=== PATIENT | male | born 1965 | race Caucasian/White ===

== ENCOUNTER 2021-09-16 19:51 | Inpatient (IN) ==
[2021-09-16] MEDS ORDERED: ACETAMINOPHEN 500 MG TAB PO STA (20:03)
[2021-09-16] MEDS ORDERED: dexAMETHasone**PF** 10 MG/ML VIAL IV ONE (20:14)
[2021-09-16] MEDS ORDERED: cefTRIAXone SODIUM 2,000 MG/70 ML BAG IV STA (20:14)
--- NOTE | 2021-09-16 20:20 | Emergency Department Note ---
Impression & Plan Pneumonia, Altered mental status, Acute hyponatremia, Fever ED Provider Note NAME: BALBIR HOPE AGE: 56 SEX: M : 1965 ARRIVES VIA: Walk-In INFORMANT: Patient, patient's son ED PROVIDER(S): Cheikh Cabrera DO CHIEF COMPLAINT: Altered mental status HPI: The patient is a 56-year-old male who presented to the emergency department for an evaluation of altered mental status. The patient presented with his son. The patient is able to give some history but he seems somewhat confused and slow to answer questions. The patient has had symptoms for approximately 1 week. He has had no abdominal pain or vomiting but he has had some nausea and loose bowel movements. He has had a headache as well. According to his son he has been complaining of the symptoms off and on for the last week. 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 There is concern that the patient may have been exposed to dirty water. He was not drinking this water. There is also concern he may have a tickborne or mosquito borne illness. The patient has been taking medication for fever. The patient has had no traveling outside of the area. The patient was ordered an antibiotic today which he was unable to get initially but did have at least 1 dose according to his son. He is had no reported trauma. He has had no reported rashes. He denies having any back pain but complains of overall muscle pain. ROS: See above HPI for pertinent positives & negatives. A total of 10 systems reviewed and were otherwise negative. PAST MEDICAL HISTORY: See Below PAST SURGICAL HISTORY: See Below FAMILY HISTORY: See Below SOCIAL HISTORY: See Below HOME MEDICATIONS: See Below ALLERGIES: See Below VITALS: See Below PHYSICAL EXAMINATION: GENERAL: The patient is awake. He appears somewhat listless but answers questions appropriately. EYES: The conjunctivae are clear. The pupils are round and reactive. EARS, NOSE, MOUTH AND THROAT: The nose is without any evidence of any deformity. Mucous membranes are moist. Tongue is midline. NECK: The neck is nontender and supple. RESPIRATORY: Normal respiratory effort is noted there is no evidence of wheezing rhonchi or rales CARDIOVASCULAR: Regular rate and rhythm noted there no murmurs rubs or gallops normal S1 normal S2. GASTROINTESTINAL: The abdomen is soft. Abdomen is nontender. MUSCULOSKELETAL/EXTREMITIES: There is no evidence of gross deformity full range of motion is noted in the hips and shoulders. SKIN: Skin is warm and dry. There is no significant pedal edema. NEUROLOGIC: Patient is awake to verbal commands. Strength was symmetric. Voice is clear. MEDICAL DECISION MAKING: Patient is a 56-year-old male who presented to the emergency department for an evaluation of altered mental status. He has had what was thought to be a viral illness through the course of the week. His family member brought him to the emergency department this evening because of worsening symptoms. The patient was found to have an elevated temperature. He was also found to have hypertension. I discussed patient's laboratory and radiographic studies with him. Given his presentation he initially was treated with medications for presumed meningitis including Decadron Rocephin and vancomycin. He was also found to have hyponatremia as well as signs of pulmonary infiltrate. For this reason he was given Zithromax and a Legionella titer was ordered. Patient was also treated with IV fluids. I discussed this case with the on-call [facility] hospitalist. They have agreed to evaluate the patient in the emergency department for further management and disposition. Triage Nursing notes reviewed. Prior medical records reviewed Vital Signs: reviewed and remarkable for elevated blood pressure, fever and tachycardia. Differential diagnosis: Migraine headache, meningitis, sinusitis, CO exposure, ICH, SAH, infection, tumor, headache, sinus thrombosis, arterial dissection, as well as other pathologies. ER treatment provided: See below Diagnostics interpreted by me: ECG: EKG was obtained in the emergency department. My interpretation is normal sinus rhythm at 96 bpm. There is no ectopy. There is no acute ST segment abnormalities noted. This was compared to a tracing from July 15, 2011. No changes were noted. Cardiac Monitoring: An order was placed for continuous cardiac monitoring. The monitor shows a rate of 99 bpm with sinus rhythm. Laboratory studies: As stated above and show below. Imaging studies: See below Consultation(s): Discussed this case with Dr. Lux ED COURSE: Procedures: Lumbar Puncture Indication: Headache and fever. Verbal consent was obtained after the risks and benefits were explained, including but not limited to headache, bleeding/clotting, scarring, infection, pain, and bone/joint/nerve damage. At this time, the risks of the procedure are less than the risks of NOT performing the procedure. A time out was taken and the correct patient and site identified. The patient was placed in the seated position and the back was prepped with betadine and draped in the standard fashion. The L3 intervertebral space was identified, anesthetized locally with 1% lidocaine without epinephrine, and the spinal needle was inserted through the skin with the bevel parallel to the dural fibers. The needle was carefully ad vanced into the lumbar cistern and 4 tubes of clear CSF was obtained. The stylet was replaced and the needle was removed. A bandaid was placed and the patient was placed in the supine position. The patient tolerated the procedure well and there were no complications. Critical Care: I have personally spent greater than 40 minutes of critical care time in the direct management of this patient. This includes bedside care, interpretation of diagnostic studies, and testing, discussion with consultants, patient, and family members, and other required patient management activities. This 40 minutes is in excess of all separately billable procedures. Past Med/Surg History Social History Smoking Status: Never smoker Preferred Language: Faroese Feels Safe at Home: Yes Allergies Allergies Allergy/AdvReac Type Severity Reaction Status Date / Time No Known Allergies Allergy Verified 09/16/21 22:27 [id number] Allergy Unknown Unknown Uncoded 09/16/21 22:27 Home Meds Home Medications Medication Instructions Recorded Confirmed albuterol sulfate 90 mcg/actuation 2 puff inhalation Q4 PRN Shortness 09/16/21 09/16/21 aerosol inhaler Of Breath Or Wheezing allopurinol 100 mg tablet 100 mg PO DAILY 09/16/21 09/16/21 amoxicillin 500 mg capsule 500 mg PO TID 09/16/21 09/16/21 losartan 50 mg tablet 50 mg PO QAM 09/16/21 09/16/21 metformin 500 mg tablet 500 mg PO QAM 09/16/21 09/16/21 prednisone 20 mg tablet 40 mg PO DAILY 09/16/21 09/16/21 Results & Data (ED) Vital Signs Vital Signs - 24 hr 09/16/21 19:56 Temperature 40 C H Temperature Source Temporal Artery Scan Pulse Rate 99 H Respiratory Rate 20 Respiratory Effort / Characteristics Non-Labored Spontaneous Blood Pressure 176/99 H Blood Pressure Mean 124 Pulse Oximetry 96 Oxygen Delivery Method Room Air Sepsis Recent Fever Within 48 Hours Yes Sepsis New/Unexplained Change in Mental Status No Sepsis Action Taken by Nursing No Action Required Home Medications Current Medication List: was personally reviewed by me Laboratory Data Attestation: I reviewed the patient's lab results. Result diagrams: 09/16/21 20:10 09/16/21 20:10 Lab Results 09/16/21 09/16/21 09/16/21 Range/Units 20:10 20:10 20:10 WBC 8.29 (4.8-10.8) K/ul RBC 4.59 L (4.63-6.08) M/uL Hgb 13.3 L (14.0-18.0) g/dl Hct 37.3 L (40.1-51.0) % MCV 81.3 (80.0-100.0) fL MCH 29.0 (25.0-34.0) pg MCHC 35.7 (32.0-36.0) g/dL RDW Std Deviation 38.1 (36.4-46.3) fL RDW Coeff of Deanne 12.9 (11.5-14.5) % Plt Count 273 (130-400) K/uL MPV 9.7 (9.4-12.4) fL Immature Gran % (Auto) 0.8 % Neut % (Auto) 85.2 % Lymph % (Auto) 5.5 % Mcmullen % (Auto) 7.6 % Eos % (Auto) 0.4 % Baso % (Auto) 0.5 % Neut # (Auto) 7.06 H (1.4-6.5) K/uL Lymph # (Auto) 0.46 L (1.2-3.4) K/uL Mcmullen # (Auto) 0.63 (0.24-0.82) K/uL Eos # (Auto) 0.03 (0-0.50) K/uL Baso # (Auto) 0.04 (0-0.2) K/uL Immature Gran # (Auto) 0.07 H (0.00-0.02) K/uL ESR 107 H (0-20) mm/hr PT 11.5 (9.0-12.0) Seconds INR 1.1 (0.9-1.1) APTT 32.8 H (21.0-31.0) Seconds PTT Ratio 1.2 Sodium (136-145) mmol/L Potassium (3.5-5.1) mmol/L Chloride (98-107) mmol/L Carbon Dioxide (21-32) mmol/L Anion Gap (3-11) BUN (6-23) mg/dl Creatinine (0.6-1.4) mg/dl Est Cr Clr Drug Dosing ml/min Est GFR ( Amer) ml/min Est GFR (Non-Af Amer) ml/min BUN/Creatinine Ratio (10-20) Glucose (70-99(Fasting)) mg/dl Osmolality (280-300) mOsm/kg Lactate (0.4-2.0) mmol/L Calcium (8.5-10.1) mg/dl Magnesium (1.7-2.4) mg/dl Total Bilirubin (0.2-1.0) mg/dl AST (13-39) U/L ALT (7-52) U/L Alkaline Phosphatase (34-104) U/L Troponin I High Sens (0-20) pg/ml C-Reactive Protein (0-0.5) mg/dl Total Protein (6.0-8.3) gm/dl Albumin (3.4-5.0) gm/dl Globulin (2.5-4.0) gm/dl Albumin/Globulin Ratio (0.9-2) Procalcitonin (0-0.5) ng/ml Fluid Comment CSF Appearance CSF Color Xanthrochromic CSF WBC (0-5) /uL CSF RBC (0-) /uL CSF Cell Count Tube # CSF Chemistry Tube # CSF Glucose (40-70) mg/dl CSF Total Protein (15-45) mg/dl Anaplasma Smear See Comment Babesia Smear See Comment Lyme Disease IgG Ab (Negative) Lyme Disease IgM Ab (Negative) SARS-CoV-2 (PCR) (Negative) Influenza Type A (PCR) (Neg) Influenza Type B (PCR) (Neg) RSV (RT-PCR) (Neg) 09/16/21 09/16/21 09/16/21 Range/Units 20:10 20:10 20:10 WBC (4.8-10.8) K/ul RBC (4.63-6.08) M/uL Hgb (14.0-18.0) g/dl Hct (40.1-51.0) % MCV (80.0-100.0) fL MCH (25.0-34.0) pg MCHC (32.0-36.0) g/dL RDW Std Deviation (36.4-46.3) fL RDW Coeff of Deanne (11.5-14.5) % Plt Count (130-400) K/uL MPV (9.4-12.4) fL Immature Gran % (Auto) % Neut % (Auto) % Lymph % (Auto) % Mcmullen % (Auto) % Eos % (Auto) % Baso % (Auto) % Neut # (Auto) (1.4-6.5) K/uL Lymph # (Auto) (1.2-3.4) K/uL Mcmullen # (Auto) (0.24-0.82) K/uL Eos # (Auto) (0-0.50) K/uL Baso # (Auto) (0-0.2) K/uL Immature Gran # (Auto) (0.00-0.02) K/uL ESR (0-20) mm/hr PT (9.0-12.0) Seconds INR (0.9-1.1) APTT (21.0-31.0) Seconds PTT Ratio Sodium 112 L* (136-145) mmol/L Potassium 4.2 (3.5-5.1) mmol/L Chloride 80 L (98-107) mmol/L Carbon Dioxide 22 (21-32) mmol/L Anion Gap 10 (3-11) BUN 13 (6-23) mg/dl Creatinine 1.06 (0.6-1.4) mg/dl Est Cr Clr Drug Dosing 117.0 ml/min Est GFR ( Amer) 91.8 ml/min Est GFR (Non-Af Amer) 79.2 ml/min BUN/Creatinine Ratio 12.3 (10-20) Glucose 96 (70-99(Fasting)) mg/dl Osmolality (280-300) mOsm/kg Lactate 1.3 (0.4-2.0) mmol/L Calcium 9.0 (8.5-10.1) mg/dl Magnesium 1.8 (1.7-2.4) mg/dl Total Bilirubin 1.7 H (0.2-1.0) mg/dl AST 63 H (13-39) U/L ALT 155 H (7-52) U/L Alkaline Phosphatase 81 (34-104) U/L Troponin I High Sens 19.0 (0-20) pg/ml C-Reactive Protein 27.49 H (0-0.5) mg/dl Total Protein 7.6 (6.0-8.3) gm/dl Albumin 3.8 (3.4-5.0) gm/dl Globulin 3.8 (2.5-4.0) gm/dl Albumin/Globulin Ratio 1.0 (0.9-2) Procalcitonin 0.75 H (0-0.5) ng/ml Fluid Comment CSF Appearance CSF Color Xanthrochromic CSF WBC (0-5) /uL CSF RBC (0-) /uL CSF Cell Count Tube # CSF Chemistry Tube # CSF Glucose (40-70) mg/dl CSF Total Protein (15-45) mg/dl Anaplasma Smear Babesia Smear Lyme Disease IgG Ab Negative (Negative) Lyme Disease IgM Ab Negative (Negative) SARS-CoV-2 (PCR) (Negative) Influenza Type A (PCR) (Neg) Influenza Type B (PCR) (Neg) RSV (RT-PCR) (Neg) 09/16/21 09/16/21 09/16/21 Range/Units 20:10 20:30 21:55 WBC (4.8-10.8) K/ul RBC (4.63-6.08) M/uL Hgb (14.0-18.0) g/dl Hct (40.1-51.0) % MCV (80.0-100.0) fL MCH (25.0-34.0) pg MCHC (32.0-36.0) g/dL RDW Std Deviation (36.4-46.3) fL RDW Coeff of Deanne (11.5-14.5) % Plt Count (130-400) K/uL MPV (9.4-12.4) fL Immature Gran % (Auto) % Neut % (Auto) % Lymph % (Auto) % Mcmullen % (Auto) % Eos % (Auto) % Baso % (Auto) % Neut # (Auto) (1.4-6.5) K/uL Lymph # (Auto) (1.2-3.4) K/uL Mcmullen # (Auto) (0.24-0.82) K/uL Eos # (Auto) (0-0.50) K/uL Baso # (Auto) (0-0.2) K/uL Immature Gran # (Auto) (0.00-0.02) K/uL ESR (0-20) mm/hr PT (9.0-12.0) Seconds INR (0.9-1.1) APTT (21.0-31.0) Seconds PTT Ratio Sodium (136-145) mmol/L Potassium (3.5-5.1) mmol/L Chloride (98-107) mmol/L Carbon Dioxide (21-32) mmol/L Anion Gap (3-11) BUN (6-23) mg/dl Creatinine (0.6-1.4) mg/dl Est Cr Clr Drug Dosing ml/min Est GFR ( Amer) ml/min Est GFR (Non-Af Amer) ml/min BUN/Creatinine Ratio (10-20) Glucose (70-99(Fasting)) mg/dl Osmolality 236 L* (280-300) mOsm/kg Lactate (0.4-2.0) mmol/L Calcium (8.5-10.1) mg/dl Magnesium (1.7-2.4) mg/dl Total Bilirubin (0.2-1.0) mg/dl AST (13-39) U/L ALT (7-52) U/L Alkaline Phosphatase (34-104) U/L Troponin I High Sens (0-20) pg/ml C-Reactive Protein (0-0.5) mg/dl Total Protein (6.0-8.3) gm/dl Albumin (3.4-5.0) gm/dl Globulin (2.5-4.0) gm/dl Albumin/Globulin Ratio (0.9-2) Procalcitonin (0-0.5) ng/ml Fluid Comment CSF Appearance Clear CSF Color Colorless Xanthrochromic No xanthochromia CSF WBC 2 (0-5) /uL CSF RBC 2 (0-) /uL CSF Cell Count Tube # 3 CSF Chemistry Tube # CSF Glucose (40-70) mg/dl CSF Total Protein (15-45) mg/dl Anaplasma Smear Babesia Smear Lyme Disease IgG Ab (Negative) Lyme Disease IgM Ab (Negative) SARS-CoV-2 (PCR) NEGATIVE (Negative) Influenza Type A (PCR) Negative (Neg) Influenza Type B (PCR) Negative (Neg) RSV (RT-PCR) Negative (Neg) 09/16/21 09/16/21 Range/Units 21:55 21:55 WBC (4.8-10.8) K/ul RBC (4.63-6.08) M/uL Hgb (14.0-18.0) g/dl Hct (40.1-51.0) % MCV (80.0-100.0) fL MCH (25.0-34.0) pg MCHC (32.0-36.0) g/dL RDW Std Deviation (36.4-46.3) fL RDW Coeff of Deanne (11.5-14.5) % Plt Count (130-400) K/uL MPV (9.4-12.4) fL Immature Gran % (Auto) % Neut % (Auto) % Lymph % (Auto) % Mcmullen % (Auto) % Eos % (Auto) % Baso % (Auto) % Neut # (Auto) (1.4-6.5) K/uL Lymph # (Auto) (1.2-3.4) K/uL Mcmullen # (Auto) (0.24-0.82) K/uL Eos # (Auto) (0-0.50) K/uL Baso # (Auto) (0-0.2) K/uL Immature Gran # (Auto) (0.00-0.02) K/uL ESR (0-20) mm/hr PT (9.0-12.0) Seconds INR (0.9-1.1) APTT (21.0-31.0) Seconds PTT Ratio Sodium (136-145) mmol/L Potassium (3.5-5.1) mmol/L Chloride (98-107) mmol/L Carbon Dioxide (21-32) mmol/L Anion Gap (3-11) BUN (6-23) mg/dl Creatinine (0.6-1.4) mg/dl Est Cr Clr Drug Dosing ml/min Est GFR ( Amer) ml/min Est GFR (Non-Af Amer) ml/min BUN/Creatinine Ratio (10-20) Glucose (70-99(Fasting)) mg/dl Osmolality (280-300) mOsm/kg Lactate (0.4-2.0) mmol/L Calcium (8.5-10.1) mg/dl Magnesium (1.7-2.4) mg/dl Total Bilirubin (0.2-1.0) mg/dl AST (13-39) U/L ALT (7-52) U/L Alkaline Phosphatase (34-104) U/L Troponin I High Sens (0-20) pg/ml C-Reactive Protein (0-0.5) mg/dl Total Protein (6.0-8.3) gm/dl Albumin (3.4-5.0) gm/dl Globulin (2.5-4.0) gm/dl Albumin/Globulin Ratio (0.9-2) Procalcitonin (0-0.5) ng/ml Fluid Comment CSF Appearance CSF Color Xanthrochromic CSF WBC (0-5) /uL CSF RBC (0-) /uL CSF Cell Count Tube # CSF Chemistry Tube # 1 CSF Glucose 54 (40-70) mg/dl CSF Total Protein 27.6 (15-45) mg/dl Anaplasma Smear Babesia Smear Lyme Disease IgG Ab (Negative) Lyme Disease IgM Ab (Negative) SARS-CoV-2 (PCR) (Negative) Influenza Type A (PCR) (Neg) Influenza Type B (PCR) (Neg) RSV (RT-PCR) (Neg) Administered Medications Azithromycin 500 mg/ Dextrose 255 mls @ 127.5 mls/hr IV NOW STA Stop: 09/16/21 23:28 Last Admin: 09/16/21 23:07 Dose: 127.5 mls/hr Documented By: LAVERNE Vancomycin HCl 2,750 mg/ (Sodium Chloride) 555 mls @ 200 mls/hr IV NOW ONE Stop: 09/17/21 00:15 Last Admin: 09/16/21 22:12 Dose: 200 mls/hr Documented By: LAVERNE Discontinued Medications Acetaminophen (Acetaminophen 500 Mg Tab) 1,000 mg PO NOW STA Stop: 09/16/21 20:04 Last Admin: 09/16/21 20:22 Dose: 1,000 mg Documented By: [id number] Dexamethasone Sodium Phosphate (DexamethasonePf 10 Mg/Ml Vial) 10 mg IV NOW ONE Stop: 09/16/21 20:15 Last Admin: 09/16/21 20:40 Dose: 10 mg Documented By: LAVERNE Ceftriaxone Sodium (Rocephin) 2,000 mg in 70 mls @ 140 mls/hr IV NOW STA Stop: 09/16/21 20:43 Last Admin: 09/16/21 20:40 Dose: 140 mls/hr Documented By: LAVERNE Lidocaine/Epinephrine (Lido/Epinephrine/Sod Bicarb 20 Ml Vial) Confirm Administered Dose 20 ml INFIL .STK-MED ONE Stop: 09/16/21 21:47 Last Admin: 09/16/21 21:50 Dose: 20 ml Documented By: LAVERNE Imaging Data Radiologist's Impression: Chest X-Ray 09/16/21 20:03 XR chest 1V portable HISTORY: 56 years-old Male SEPSIS acute sepsis COMPARISON: Chest radiograph 07/15/2011 TECHNIQUE: Portable AP view of the chest FINDINGS: Cardiac silhouette is enlarged. Poorly vascular congestion. Bibasilar and right perihilar airspace opacities measure up to 3.7 cm within the right perihilar distribution. Trace pleural effusions. No pneumothorax. Degenerative changes of the shoulders and spine. IMPRESSION: 1. Cardiomegaly with pulmonary vascular congestion. 2. Right perihilar and bibasilar opacities are noted. Findings may represent a superimposed infectious or inflammatory pneumonitis versus asymmetric pulmonary edema with atelectasis. Follow-up imaging to document resolution recommended. 3. Trace pleural effusions. ACT 112: Negative or not required by law. The above report was generated using voice recognition software. It may contain grammatical, syntax or spelling errors. Electronically signed by: Irineo Banda M.D. 09/16/2021 8:45 PM Patient: BALBIR HOPE (Male) : 69 Status: ER Date: 09/16/21 21:36 Room #: History: FEVER Slices: 811 Priors: Tech: AntonioBhupendra @ [phone] Exams: CT ABDOMEN & PELVIS Without Contrast Contrast: Accession Numbers: [id number] Referring Physician: EMA ARMENDARIZ Preliminary Findings Only See Final Report For Complete Findings CT ABDOMEN & PELVIS Without Contrast: Partially seen moderate to large left lower lobe consolidation. Small consolidation at the right lung base. The heart is large. Liver large measuring 28 cm. Gallbladder, pancreas, spleen and adrenals are intact. Kidneys are intact. Bladder intact. Fluid in the large and small bowel loops. Fluid in the rectum. No bowel obstruction. Appendix not seen. No adenopathy, free fluid or free air. Minimal atherosclerosis. No acute findings in the bones. Impression: Bowel pattern with features of a gastroenteritis. Radiologist: Gordon Garcia M.D. Study ready at 21:42 and initial results transmitted at 22:12 Patient: BALBIR HOPE (Male) : 69 B Status: ER Date: 09/16/21 21:36 Room #: History: FEVER Slices: 811 Priors: Tech: Antonio Bhupendra @ [phone] 0 Exams: CT ABDOMEN & PELVIS Without Contrast Contrast: Accession Numbers: [id number] Referring Physician: EMA ARMENDARIZ Preliminary Findings Only See Final Report For Complete Findings ADDENDUM - Added by Gordon Garcia M.D. on 09/16/2021 10:19 PM (-07:00) Consolidations of the lung bases as described. CT ABDOMEN & PELVIS Without Contrast: Partially seen moderate to large left lower lobe consolidation. Small consolidation at the right lung base. The heart is large. Liver large measuring 28 cm. Gallbladder, pancreas, spleen and adrenals are intact. Kidneys are intact. Bladder intact. Fluid in the large and small bowel loops. Fluid in the rectum. No bowel obstruction. Appendix not seen. No adenopathy, free fluid or free air. Minimal atherosclerosis. No acute findings in the bones. Impression: Bowel pattern with features of a gastroenteritis. Radiologist: Gordon Garcia M.D. Patient:BALBIR HOPE (Male):69MRN:[id number]:ERDate:09/16/21 21:29Room #:History:AMSSlices:66Priors:Tech:Bhupendra Alvarez @ [phone]:CT HEADContrast: Accession Numbers: [id number] Referring Physician: EMA ARMENDARIZ Preliminary Findings Only See Final Report For Complete Findings CT HEAD: No intracranial hemorrhage, mass-effect or midline shift. There is no abnormal extra axial fluid collection. No evidence of acute infarct. Mild mucosal thickening of the paranasal sinuses. No mastoid effusion. No fracture. Radiologist:MAYRA Ocampohone:[phone] ready at 21:33 and initial results transmitted at 22:47Study ready at 21:42 and initial results transmitted at 22:12 Discharge Plan Visit Data Chief Complaint: Altered Mental Status Stated Complaint: HEADACHE, NAUSEA, SOB, CONFUSION, STUMBLING ED Provider: Cheikh Cabrera Discharge Problem: Pneumonia, Altered mental status, Acute hyponatremia, Fever Patient Disposition: Being Evaluated by Hospitalist Forms Stand Alone Forms: My [facility] Prescriptions Prescriptions: No Action losartan 50 mg tablet 50 mg PO QAM amoxicillin 500 mg capsule 500 mg PO TID Rx Instructions: Take for 7 days , filled 09/16/21 metformin 500 mg tablet 500 mg PO QAM prednisone 20 mg tablet 40 mg PO DAILY Rx Instructions: take for 5 days allopurinol 100 mg tablet 100 mg PO DAILY albuterol sulfate 90 mcg/actuation HFA aerosol inhaler 2 puff INHALATION Q4 PRN (Reason: Shortness Of Breath Or Wheezing) Referrals Referrals: PCP,NO [Physician] -
[2021-09-16 20:34] LABS: Basophils # (auto) 0.04 K/uL (0-0.2); Basophils % (auto) 0.5 %; Eosinophils # (auto) 0.03 K/uL (0-0.50); Eosinophils % (auto) 0.4 %; Hematocrit (blood only) 37.3 % (40.1-51.0); Hemoglobin 13.3 g/dl (14.0-18.0); Immature Granulocytes # (auto) 0.07 K/uL (0.00-0.02); Immature Granulocytes % (auto) 0.8 %; Lymphocytes # (auto) 0.46 K/uL (1.2-3.4); Lymphocytes % (auto) 5.5 %; Mean Corpuscular Hgb Conc 35.7 g/dL (32.0-36.0); Mean Corpuscular Volume 81.3 fL (80.0-100.0); Mean Platelet Volume 9.7 fL (9.4-12.4); Monocytes # (auto) 0.63 K/uL (0.24-0.82); Monocytes % (auto) 7.6 %; Neutrophils # (auto) 7.06 K/uL (1.4-6.5); Neutrophils % (auto) 85.2 %; Platelet Count 273 K/uL (130-400); RDW Coefficient of Variation 12.9 % (11.5-14.5); RDW Standard Deviation 38.1 fL (36.4-46.3); Red Blood Count 4.59 M/uL (4.63-6.08); White Blood Count 8.29 K/ul (4.8-10.8)
--- NOTE | 2021-09-16 20:46 | XRay Report ---
XR chest 1V portable HISTORY: 56 years-old Male SEPSIS acute sepsis COMPARISON: Chest radiograph 07/15/2011 TECHNIQUE: Portable AP view of the chest FINDINGS: Cardiac silhouette is enlarged. Poorly vascular congestion. Bibasilar and right perihilar airspace op acities measure up to 3.7 cm within the right perihilar distribution. Trace pleural effusions. No pne umothorax. Degenerative changes of the shoulders and spine. IMPRESSION: 1. Cardiomegaly with pulmonary vascular congestion. 2. Right perihilar and bibasilar opacities are noted. Findings may represent a superimposed infectiou s or inflammatory pneumonitis versus asymmetric pulmonary edema with atelectasis. Follow-up imaging t o document resolution recommended. 3. Trace pleural effusions. ACT 112: Negative or not required by law. The above report was generated using voice recognition software. It may contain grammatical, syntax o r spelling errors. Electronically signed by: Irineo Banda M.D. 09/16/2021 8:45 PM
[2021-09-16 20:52] LABS: INR 1.1 (0.9-1.1); Partial Thromboplastin Ratio 1.2; Partial Thromboplastin Time 32.8 Seconds (21.0-31.0); Prothrombin Time 11.5 Seconds (9.0-12.0)
[2021-09-16 21:12] LABS: Albumin Level 3.8 gm/dl (3.4-5.0); BUN Creatinine Ratio 12.3 (10-20); Bilirubin,Total 1.7 mg/dl (0.2-1.0); C Reactive Protein 27.49 mg/dl (0-0.5); Est GFR (African American) 91.8 ml/min; Est GFR (Non-African American) 79.2 ml/min; Globulin 3.8 gm/dl (2.5-4.0); Magnesium 1.8 mg/dl (1.7-2.4); Potassium 4.2 mmol/L (3.5-5.1); Total Protein 7.6 gm/dl (6.0-8.3)
[2021-09-16 21:21] LABS: Procalcitonin 0.75 ng/ml (0-0.5)
[2021-09-16 21:27] LABS: Lyme Ab IgG w/WB Rflx Negative (Negative); Lyme Ab IgM w/WB Rflx Negative (Negative)
[2021-09-16] MEDS ORDERED: VANCOMYCIN HCL 2,750 MG in SODIUM CHLORIDE 0.9% 500 ML IV ONE (21:29)
[2021-09-16] MEDS ORDERED: AZITHROMYCIN 500 MG in DEXTROSE 5% 250 ML IV STA (21:29)
[2021-09-16] MEDS ORDERED: VANCOMYCIN CONSULT ACTIVE PRN (21:29)
[2021-09-16] MEDS ORDERED: LIDO/EPINEPHRINE/SOD BICARB 20 ML VIAL INFIL ONE (21:46)
[2021-09-16 22:24] LABS: Appearance CSF Clear; CSF Count Tube # 3; CSF Xanthrochromic No xanthochromia; Color CSF Colorless; Red Blood Cell CSF (A) 2 /uL (0-); Red Blood Cell CSF (B) 0 /uL (0-); White Blood Cell CSF (A) 2 /uL (0-5); White Blood Cell CSF (B) 2 /uL (0-5)
[2021-09-16 22:41] LABS: CSF Glucose 54 mg/dl (40-70)
--- NOTE | 2021-09-16 22:52 | History & Physical Report ---
Date of Service September 16, 2021 Assessment & Plan (1) Increasing shortness of breath: Plan: Multifactorial : Sepsis secondary to CAP, symptoms somewhat atypical Pulmonary congestion from fluid overload from polydipsia, hx chronic diastolic dysfunction (EF 60 to 64%, TTE 2021), mild aortic stenosis Hyponatremia causing alteration in mental status Significant improvement following initial intervention at the ER Multifactorial : Polydipsia Diarrhea secondary to illness/home laxatives, rule out C. difficile given healthcare provider contacts in the family Pulmonary congestion ? Secondary to atypical organism (Legionella) HTN, elevated secondary to illness daytime somnolence as per records, outpatient sleep study contemplated prediabetes, hemoglobin A1c of 5.9 last April 2021 New onset anemia possibly dilutional PCU CS, Doxycycline Lasix 1 dose now Update TTE Strict I/Os, daily weights, CHF education, fluid restriction for now May need Cardiology eval pending updated TTE results Follow serum sodium Hyponatremia work-up Nephrology consult Re: Hyponatremia Stool C. difficile, appropriate to hold home laxatives for now Anemia work-up, transfuse PRBC if hemoglobin less than 7 and or for symptomatic anemia DVT prophylaxis per Lovenox subcu Full code Patient requests for his to be updated of progress. Ms. Callie Soliz, contact #[phone]. Text document was generated using [employer] voice recognition software. It may contain grammatical or spelling errors. Kindly contact undersigned for clarification of any documentation item in question. History of Present Illness Chief Complaint: Confusion, shortness of breath Primary Care Provider: Michael Arnold MD History obtained from patient, family, and records. Medical history significant for chronic diastolic dysfunction (EF 60 to 64%, TTE 2021), mild aortic stenosis, hypertension, hyperlipidemia, daytime somnolence as per records, prediabetes. 10 days ago, patient noted dry cough, congestion, headache, sore throat, fever symptoms, watery diarrhea without abdominal pain symptoms. No recent COVID-19 contacts. Patient completed COVID-19 vaccination. No recent antibiotic Rx preceding illness. 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 Patient seen at PCP's office. Prednisone later amoxicillin course p rescribed for possible acute bronchitis. Some improvement in cough symptoms. Patient noted to be short of breath by family. No chest pain. Poor appetite. Patient drinking a lot of water to avoid dehydration following 's advice. Patient thinks he may have overdone it by drinking as much as 6 L of water daily the last few days. Patient denies fluid retention. Patient noted to be disoriented at home by family. Patient brought to the ER for evaluation. Vancomycin, ceftriaxone, azithromycin and Decadron administered at the ER. Patient mentation much better as per family. 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 Allergies Allergy/AdvReac Type Severity Reaction Status Date / Time No Known Allergies Allergy Verified 09/16/21 22:27 Home Medications Medication Instructions Recorded Confirmed Type albuterol sulfate 90 mcg/actuation 2 puff inhalation Q4 PRN Shortness 09/16/21 09/16/21 History aerosol inhaler Of Breath Or Wheezing allopurinol 100 mg tablet 100 mg PO DAILY 09/16/21 09/16/21 History amoxicillin 500 mg capsule 500 mg PO TID 09/16/21 09/16/21 History losartan 50 mg tablet 50 mg PO QAM 09/16/21 09/16/21 History metformin 500 mg tablet 500 mg PO QAM 09/16/21 09/16/21 History prednisone 20 mg tablet 40 mg PO DAILY 09/16/21 09/16/21 History Past Med/Surg History Social History Smoking Status: Never smoker Hx Substance Use: No Preferred Language: Sami Communication Ability: Effective Die Baker Required: No Beliefs That Will Affect Care: None Current Living Situation: Family Feels Safe at Home: Yes Safety Concerns: Feels Safe At This Time Assistive Devices: Glasses Review of Systems Review of Systems: As per HPI, all other systems reviewed and negative Physical Exam Physical Exam: GENERAL: Comfortable, obese, minimal respiratory distress SKIN: Normal color, warm HEENT: Alopecia, [place] palpebral conjunctivae, no ptosis, dry buccal mucosa NECK : Supple, short neck, no tenderness CHEST : Decreased breath sounds, no tenderness HEART : RRR, systolic murmur ABDOMEN: Some distention, nontender EXTREMITIES : Minimal LE swelling, no LE tenderness, no other conspicuous deformities noted NEUROLOGIC : Coherent, no facial asymmetry, no other gross focality Results & Data Results & Data ([facility]) Vital Signs (Past 12 Hours) Vital Signs Temp Pulse Resp BP Pulse Ox O2 Del Method 09/16/21 19:56 40 C H 99 H 20 176/99 H 96 Room Air Laboratory Results Laboratory Results WBC 8.29 K/ul (4.8-10.8) 09/16/21 20:10 RBC 4.59 M/uL (4.63-6.08) L 09/16/21 20:10 Hgb 13.3 g/dl (14.0-18.0) L 09/16/21 20:10 Hct 37.3 % (40.1-51.0) L 09/16/21 20:10 MCV 81.3 fL (80.0-100.0) 09/16/21 20:10 MCH 29.0 pg (25.0-34.0) 09/16/21 20:10 MCHC 35.7 g/dL (32.0-36.0) 09/16/21 20:10 RDW Std Deviation 38.1 fL (36.4-46.3) 09/16/21 20:10 RDW Coeff of Deanne 12.9 % (11.5-14.5) 09/16/21 20:10 Plt Count 273 K/uL (130-400) 09/16/21 20:10 MPV 9.7 fL (9.4-12.4) 09/16/21 20:10 Immature Gran % (Auto) 0.8 % 09/16/21 20:10 Neut % (Auto) 85.2 % 09/16/21 20:10 Lymph % (Auto) 5.5 % 09/16/21 20:10 [place] % (Auto) 7.6 % 09/16/21 20:10 Eos % (Auto) 0.4 % 09/16/21 20:10 Baso % (Auto) 0.5 % 09/16/21 20:10 Neut # (Auto) 7.06 K/uL (1.4-6.5) H 09/16/21 20:10 Lymph # (Auto) 0.46 K/uL (1.2-3.4) L 09/16/21 20:10 [place] # (Auto) 0.63 K/uL (0.24-0.82) 09/16/21 20:10 Eos # (Auto) 0.03 K/uL (0-0.50) 09/16/21 20:10 Baso # (Auto) 0.04 K/uL (0-0.2) 09/16/21 20:10 Immature Gran # (Auto) 0.07 K/uL (0.00-0.02) H 09/16/21 20:10 ESR 107 mm/hr (0-20) H 09/16/21 20:10 PT 11.5 Seconds (9.0-12.0) 09/16/21 20:10 INR 1.1 (0.9-1.1) 09/16/21 20:10 APTT 32.8 Seconds (21.0-31.0) H 09/16/21 20:10 PTT Ratio 1.2 09/16/21 20:10 Sodium 112 mmol/L (136-145) L* 09/16/21 20:10 Potassium 4.2 mmol/L (3.5-5.1) 09/16/21 20:10 Chloride 80 mmol/L (98-107) L 09/16/21 20:10 Carbon Dioxide 22 mmol/L (21-32) 09/16/21 20:10 Anion Gap 10 (3-11) 09/16/21 20:10 BUN 13 mg/dl (6-23) 09/16/21 20:10 Creatinine 1.06 mg/dl (0.6-1.4) 09/16/21 20:10 Est Cr Clr Drug Dosing 117.0 ml/min 09/16/21 20:10 Est GFR ( Amer) 91.8 ml/min 09/16/21 20:10 Est GFR (Non-Af Amer) 79.2 ml/min 09/16/21 20:10 BUN/Creatinine Ratio 12.3 (10-20) 09/16/21 20:10 Glucose 96 mg/dl (70-99(Fasting)) 09/16/21 20:10 Osmolality 236 mOsm/kg (280-300) L* 09/16/21 20:10 Lactate 1.3 mmol/L (0.4-2.0) 09/16/21 20:10 Calcium 9.0 mg/dl (8.5-10.1) 09/16/21 20:10 Magnesium 1.8 mg/dl (1.7-2.4) 09/16/21 20:10 Total Bilirubin 1.7 mg/dl (0.2-1.0) H 09/16/21 20:10 AST 63 U/L (13-39) H 09/16/21 20:10 ALT 155 U/L (7-52) H 09/16/21 20:10 Alkaline Phosphatase 81 U/L (34-104) 09/16/21 20:10 Troponin I High Sens 19.0 pg/ml (0-20) 09/16/21 20:10 C-Reactive Protein 27.49 mg/dl (0-0.5) H 09/16/21 20:10 Total Protein 7.6 gm/dl (6.0-8.3) 09/16/21 20:10 Albumin 3.8 gm/dl (3.4-5.0) 09/16/21 20:10 Globulin 3.8 gm/dl (2.5-4.0) 09/16/21 20:10 Albumin/Globulin Ratio 1.0 (0.9-2) 09/16/21 20:10 Procalcitonin 0.75 ng/ml (0-0.5) H 09/16/21 20:10 Fluid Comment 09/16/21 21:55 CSF Appearance Clear 09/16/21 21:55 CSF Color Colorless 09/16/21 21:55 Xanthrochromic No xanthochromia 09/16/21 21:55 CSF WBC 2 /uL (0-5) 09/16/21 21:55 CSF RBC 2 /uL (0-) 09/16/21 21:55 CSF Cell Count Tube # 3 09/16/21 21:55 CSF Glucose 54 mg/dl (40-70) 09/16/21 21:55 CSF Total Protein 27.6 mg/dl (15-45) 09/16/21 21:55 Anaplasma Smear See Comment 09/16/21 20:10 Babesia Smear See Comment 09/16/21 20:10 Lyme Disease IgG Ab Negative (Negative) 09/16/21 20:10 Lyme Disease IgM Ab Negative (Negative) 09/16/21 20:10 Impressions Chest X-Ray 09/16/21 20:03 XR chest 1V portable HISTORY: 56 years-old Male SEPSIS acute sepsis COMPARISON: Chest radiograph 07/15/2011 TECHNIQUE: Portable AP view of the chest FINDINGS: Cardiac silhouette is enlarged. Poorly vascular congestion. Bibasilar and right perihilar airspace opacities measure up to 3.7 cm within the right perihilar distribution. Trace pleural effusions. No pneumothorax. Degenerative changes of the shoulders and spine. IMPRESSION: 1. Cardiomegaly with pulmonary vascular congestion. 2. Right perihilar and bibasilar opacities are noted. Findings may represent a superimposed infectious or inflammatory pneumonitis versus asymmetric pulmonary edema with atelectasis. Follow-up imaging to document resolution recommended. 3. Trace pleural effusions. ACT 112: Negative or not required by law. The above report was generated using voice recognition software. It may contain grammatical, syntax or spelling errors. Electronically signed by: Irineo Banda M.D. 09/16/2021 8:[address] head initial read: No intracranial hemorrhage, mass-effect or midline shift. There is no abnormal extra axial fluid collection. No evidence of acute infarct. Mild mucosal thicken ing of the paranasal sinuses. No mastoid effusion. No fracture. CT abdomen pelvis initial read: Partiallyseen moderate to large left lower lobe consolidation. Small consolidation at the right lung base. The heart is large. Liver large measuring 28 cm. Gallbladder, pancreas, spleen and adrenals are intact. Kidneys are intact. Bladder intact. Fluid in the large and small bowel loops. Fluid in the rectum. No bowel obstruction. Appendix not seen. No adenopathy, free fluid or free air. Minimal atherosclerosis. No acute findings in the bones. Impression:Bowel pattern with features of a gastroenteritis. EKG as per my interpretation : Rate 95, NSR, normal axis, no ischemia
[2021-09-16 22:59] LABS: CSF Chemistry Tube # 1
[2021-09-16 23:18] LABS: Influenza A virus by PCR Negative (Neg); Influenza B virus by PCR Negative (Neg); RSV by PCR Negative (Neg); SARS CoV2 RNA(COVID-19) InHosp NEGATIVE (Negative)
[2021-09-16 23:39] LABS: Cryptococcus neoformans/ga PCR Not Detected (NotDetected); Cytomegalovirus PCR Not Detected (NotDetected); Enterovirus PCR Not Detected (NotDetected); Escherichia coli K1 PCR Not Detected (NotDetected); Haemophilius influenzae PCR Not Detected (NotDetected); Herpes Simplex Virus 1 PCR Not Detected (NotDetected); Herpes Simplex Virus 2 PCR Not Detected (NotDetected); Human Herpes Virus 6 PCR Not Detected (NotDetected); Human Parechovirus PCR Not Detected (NotDetected); Listeria monocytogenes PCR Not Detected (NotDetected); Neisseria meningitidis PCR Not Detected (NotDetected); Streptococcus agalactiae PCR Not Detected (NotDetected); Streptococcus pneumoniae PCR Not Detected (NotDetected); Varicella Zoster Virus PCR Not Detected (NotDetected)
[2021-09-16] MEDS ORDERED: FUROSEMIDE INJ 20 MG/2 ML VIAL IV ONE (23:46)
[2021-09-17 00:13] LABS: Appearance Urine Clear (Clear); Blood Urine 2+ (Negative); Color Urine Dark Yellow; Epithelial Cell Urine Auto 20-30 /lpf (0-5); Glucose Urine UA Negative (Negative); Ketones Urine Trace (Negative); Leukocyte Esterase Urine Negative (Negative); Nitrite Urine Negative (Negative); Protein Urine 2+ (Negative); RBC Urine Automated 0-4 /hpf (0-4); Specific Gravity Urine 1.014 (1.000-1.030); Urobilinogen Urine Negative (Negative)
[2021-09-17 00:16] LABS: Bilirubin Urine 1+ (Negative)
[2021-09-17] MEDS ORDERED: NITROGLYCERIN SL 0.4 MG/TAB TAB SL PRN (00:18)
[2021-09-17] MEDS ORDERED: ALBUT/IPRATROP 3MG/0.5MG NEB 3 ML VIAL NEB STA (00:28)
[2021-09-17 00:34] LABS: Amphetamines+Metham, Urine Neg (Neg); Barbiturates, Urine Neg (Neg); Benzodiazepine, Urine Neg (Neg); Cocaine, Urine Neg (Neg); MDMA (Ecstacy), Urine Neg (Neg); Methadone, Urine Neg (Neg); Opiate, Urine Neg (Neg); Phencyclidine, Urine Neg (Neg)
[2021-09-17 00:58] LABS: Bacteria Urine Automated 1+ (Negative)
[2021-09-17] MEDS ORDERED: oxyCODONE HCL IR 5 MG TAB (IMMEDIATE RELEASE) PO PRN (03:31)
[2021-09-17] MEDS ORDERED: ACETAMINOPHEN 325 MG TAB ONE (03:43)
[2021-09-17] MEDS: ACETAMINOPHEN 325 MG TAB PO PRN ×3 (03:53→19:53)
[2021-09-17 07:18] LABS: Basophils # (auto) 0.02 K/uL (0-0.2); Basophils % (auto) 0.2 %; Hematocrit (blood only) 36.9 % (40.1-51.0); Hemoglobin 12.7 g/dl (14.0-18.0); Immature Granulocytes # (auto) 0.05 K/uL (0.00-0.02); Immature Granulocytes % (auto) 0.6 %; Lymphocytes # (auto) 0.35 K/uL (1.2-3.4); Lymphocytes % (auto) 4.2 %; Mean Corpuscular Hemoglobin 28.5 pg (25.0-34.0); Mean Corpuscular Hgb Conc 34.4 g/dL (32.0-36.0); Mean Corpuscular Volume 82.9 fL (80.0-100.0); Monocytes # (auto) 0.62 K/uL (0.24-0.82); Monocytes % (auto) 7.5 %; Neutrophils # (auto) 7.21 K/uL (1.4-6.5); Neutrophils % (auto) 87.5 %; Platelet Count 260 K/uL (130-400); RDW Coefficient of Variation 13.2 % (11.5-14.5); RDW Standard Deviation 39.6 fL (36.4-46.3); Red Blood Count 4.45 M/uL (4.63-6.08); Reticulocyte % 0.8 % (0.5-2.0); Reticulocytes # 0.04 10^6/uL (0.02-0.10); White Blood Count 8.25 K/ul (4.8-10.8)
[2021-09-17 07:44] LABS: Albumin Level 3.6 gm/dl (3.4-5.0); BUN Creatinine Ratio 15.2 (10-20); Bilirubin Direct 0.7 mg/dl (0-0.2); Bilirubin,Total 1.4 mg/dl (0.2-1.0); Calcium 8.7 mg/dl (8.5-10.1); Creatinine Clr Calc Pharmacy 125.3 ml/min; Est GFR (African American) 99.7 ml/min; Potassium 3.6 mmol/L (3.5-5.1); Total Protein 6.9 gm/dl (6.0-8.3)
--- NOTE | 2021-09-17 08:08 | CT Scan Report ---
CT OF THE HEAD WITHOUT CONTRAST CLINICAL HISTORY: Altered mental status. COMPARISON STUDY: Sinus CT October 15, 2011. CT DOSE: 1768.17 mGy.cm TECHNIQUE: Helical axial images of the head were obtained without IV contrast. Automated exposure con trol was utilized for the study. A dose lowering technique was utilized adhering to the principles o f ALARA. FINDINGS: No acute intracranial hemorrhage, midline shift or mass effect is present. Suspected white matter hypodensities favor mild small vessel disease. The ventricular system is unremarkable. The bas al cisterns are patent. No extra-axial collections are present. There are no findings to suggest acut e dural sinus thrombosis or acute territorial infarct. No significant calvarial abnormalities are pre sent. Visualized portions of the sinuses and mastoid air cells are clear. Note is made of a 1.6 x 0.9 cm mass within the medial aspect of the left orbit which displaces left medial rectus muscle lateral ly. This was not evident on sinus CT of October 15, 2011. IMPRESSION: 1. No acute intracranial findings. 2. 1.6 x 0.9 cm mass within the medial aspect of the left orbit which was not evident on sinus CT of October 15, 2011. Nonemergent MRI of the orbits is recommended. This finding will be called/faxed to ordering provider at time of dictation. ACT 112: Negative or not required by law. Electronically signed by: Tomy Piper M.D. 09/17/2021 8:06 AM
--- NOTE | 2021-09-17 08:32 | CT Scan Report ---
CT OF THE ABDOMEN AND PELVIS WITHOUT CONTRAST CLINICAL HISTORY: Fever. COMPARISON STUDY: No previous studies for comparison. TECHNIQUE: Axial images of the abdomen and pelvis were obtained without IV contrast. Images were revi ewed in the axial, sagittal, and coronal planes. Automated exposure control was utilized for the elli dy. A dose lowering technique was utilized adhering to the principles of ALARA. FINDINGS: Mild cardiomegaly is present. Note is made of extensive left lower lobe consolidation. Mult ifocal airspace opacities are also noted within the lingula and right middle lobe. No pneumatosis, fr ee air or portal venous gas is present. Evaluation of the abdomen and pelvis is suboptimal on this un enhanced examination. Hepatosplenomegaly is noted. There is hepatic steatosis. No biliary or pancreat ic ductal dilatation is present. Calcifications within the right hepatic lobe are present. Adrenal gl ands, kidneys and pancreas are normal. There is no biliary or pancreatic ductal dilatation. There is no hydronephrosis. There is no evidence for a bowel obstruction. Appendix is not visualized. Colon is mildly fluid-filled. Prostate is enlarged, measuring 5.3 cm in transverse dimension. There is no lym phadenopathy. No acute fracture or suspicious lesion within visualized skeletal structures. IMPRESSION: 1. Extensive consolidation within the visualized lower lungs consistent with multifocal pneumonia. 2. Hepatic steatosis. Hepatosplenomegaly. 3. No bowel obstruction. Fluid-filled colon. ACT 112: Negative or not required by law. Electronically signed by: Tomy Piper M.D. 09/17/2021 8:30 AM
[2021-09-17] MEDS ORDERED: LABETALOL HCL IV 5 MG/ML 20ML IV PRN (09:50)
[2021-09-17] MEDS ORDERED: GADOBUTROL 65ML VIAL IV ONE (09:51)
[2021-09-17] MEDS ORDERED: PNEUMOCOCCAL POLYSACCHARIDES 25 MCG/0.5 ML VIAL/SYR IM ONE (10:00)
[2021-09-17] MEDS: allopurinoL 100 MG TAB PO SCH (10:33)
[2021-09-17] MEDS: ENOXAPARIN INJ 40 MG/0.4 ML SYR SQ SCH (10:33)
[2021-09-17] MEDS: LOSARTAN POTASSIUM 50 MG TAB PO SCH (10:33)
[2021-09-17] MEDS: DOXYCYCLINE HYCLATE 100 MG CAP PO SCH ×2 (10:34→19:53)
[2021-09-17] MEDS ORDERED: FUROSEMIDE 40 MG/4 ML VIAL IV ONE (11:00)
[2021-09-17] MEDS: ADVANCED PROBIOTIC 1250 MG CAPSULE PO SCH (11:59)
--- NOTE | 2021-09-17 11:59 | Consultation Report ---
NEPHROLOGY CONSULTATION NOTE REASON FOR CONSULTATION: Hyponatremia. HISTORY OF PRESENT ILLNESS: The patient is a 56-year-old male who presented to the hospital yesterda y and was brought to hospital by family because of increasing confusion. The patient was having mult iple symptoms for the last 1 week including cough, congestion, headache, sore throat, fever, watery d iarrhea. He says he has had 5-6 bowel movements every day for the last 7-8 days; however, denies any abdominal pain. He was not able to eat any solid food for the last 1 week, but he was drinking a lo t of liquid, which on count is about 140 ounces per day and includes water and Propel energy drink. No alcohol, soda, or coffee or tea. He has never had hyponatremia. His last blood work as an outpat ient was from June and had completely normal sodium. On admission yesterday, he had a serum sodium of 112, which then went to 117. He received a little bit of normal saline and also 1 dose of IV Lasix. Urine sodium less than 10, but urine osmolality was 330. Chest x-ray shows findings of pulmonary co ngestion and cardiomegaly as well as multifocal pneumonia on the CT abdomen and pelvis. The patient feels somewhat better now than yesterday. He is making urine. His vital signs show normal oxygen sa turation without oxygen. Blood pressure is somewhat high. PAST MEDICAL AND SURGICAL HISTORY: Includes tonsillectomy, adenoidectomy, lipoma removal, chronic di astolic dysfunction, mild aortic stenosis, hypertension, hyperlipidemia, history of severe pneumonia many years ago, history of myocarditis, prediabetes. SOCIAL HISTORY: Nonsmoker, occasional alcohol. 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 FAMILY HISTORY: Significant for heart disease and diabetes. ALLERGIES: None. MEDICATIONS: Home medication includes albuterol inhaler, allopurinol, amoxicillin 3 times a day, [place] 50 daily, metformin 500 daily, prednisone 20 daily. REVIEW OF SYSTEMS: As detailed in HPI; unless stated otherwise, 12 systems reviewed and negative. PHYSICAL EXAMINATION: GENERAL: A middle-aged white male who is awake, alert, oriented x3. He is not in any respiratory di stress. VITAL SIGNS: Most recent vital signs show blood pressure 181/121, pulse rate 79, temperature 37.3 de grees Celsius, oxygen saturation 98% on room air. CHEST: Bilateral basal crackles with diminished breath sounds. CARDIOVASCULAR: S1 and S2 regular. Soft systolic murmur heard. ABDOMEN: Soft, nontender, obese. EXTREMITIES: Show no edema. LABORATORY TESTS: In June 2021, he had a completely normal sodium. On admission yesterday, he had a serum sodium of 112, this morning is 117, chloride is 85, potassium is 3.6. BNP 253. Urine osmolali ty 330. Urine sodium less than 10. IMAGING DATA: Chest x-ray shows CHF. CT abdomen and pelvis shows multifocal pneumonia. ASSESSMENT AND PLAN: A 56-year-old male with hyponatremia, which appears to be new onset. However, he also has multiple other symptoms including GI and pulmonary symptoms and has been having diarrhea as well as findings of multifocal pneumonia. I have been consulted for hyponatremia. Hyponatremia: This is still under investigation. Urine sodium is very low at less than 10, which ca n go with either GI loss of sodium or also in significant congestive heart failure. Urine osmolality was inappropriately high in the setting of severe hyponatremia. The patient was drinking massive am ounts of liquid and no solid food, which obviously causes problem with serum sodium. At this point, I would give 1 more dose of Lasix 40 mg IV x1. I would also use urea 15 grams twice daily. Continue to do BMP every 6 hours. We will aim to correct the serum sodium by about 10 mEq per day. A lot of his symptoms at the time of admission could very well have been related with hyponatremia as he feel s significantly better today. We will continue to follow the patient. Job ID: [id number]
--- NOTE | 2021-09-17 15:23 | Magnetic Resonance Report ---
MR ORBIT WO/W CON HISTORY: 56 years-old Male Left Orbital Mass, acute confusion with flulike symptoms. A 1.6 x 0.9 cm mass of the left orbit was incidentally found on yesterday's head CT. COMPARISON: Head CT 09/16/2021 TECHNIQUE: Multiplanar multisequence MRI of the orbits was obtained both with and without the use of 13.6 cc Gadavist. FINDINGS: There is no restricted diffusion. Midline structures appear unremarkable. Degenerative changes of the imaged cervical spine. Mild involutional changes of the brain parenchyma which otherwise appears unr emarkable. The study is mildly motion degraded. Mild polypoid mucosal thickening of the maxillary sin uses. There is an ovoid circumscribed T2 hyperintense left intraorbital medial extraconal lesion measuring 2.3 x 1.0 x 1.2 cm which abuts and displaces the adjacent medial rectus muscle which may partially ab ut the optic nerve. This results in mild left-sided exophthalmus. There is a fluid-fluid level with e nhancement. The bilateral globes, orbits and extraocular musculature are otherwise within normal limi ts. There is dilation of the left greater than right superior ophthalmic veins. Dilated venous struct ures are also noted within the left greater than right face and temporalis distributions. 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 Additionally, there is dilation of the left greater than right superior ophthalmic veins with dilated facial veins. Etiology of these findings is nonspecific. Differential considerations would include various causes of elevated venous pressures i ncluding carotid cavernous fistula or dural arteriovenous fistula among other etiologies. Ophthalmolo gy consultation is needed. ACT 112: Negative or not required by law. The above report was generated using voice recognition software. It may contain grammatical, syntax o r spelling errors. Dictated: 09/17/2021 1:29 PM Transcribed: 09/17/2021 2:02 PM Ale [id number] [facility]_[place] Electronically signed by: Irineo Banda M.D. 09/17/2021 3:21 PM
[2021-09-17] MEDS: ALBUTEROL 0.083% NEBU SOLN 3 ML VIAL NEB PRN (18:13)
--- NOTE | 2021-09-17 19:20 | Hospitalist Progress Note ---
Date of Service September 17, 2021 Assessment & Plan (1) Increasing shortness of breath: Plan: Multifactorial : Multifocal pneumonia, fluid overload likely secondary to increased fluid intake and acute on chronic diastolic heart failure Suspected sepsis secondary to multifocal pneumonia --CXR:Cardiomegaly with pulmonary vascular congestion. Right perihilar and bibasilar opacities are noted. Findings may represent a superimposed infectious or inflammatory pneumonitis versus asymmetric pulmonary edema with atelectasis. Follow-up imaging to document resolution recommended. Trace pleural effusions. --ECHO: Mild concentric LVH. Left ventricle wall motion is normal. EF 55 to 60%. Aortic valve sclerosis moderate, without significant aortic valvular stenosis. Trace mitral regurgitation. Grade 1 diastolic dysfunction. Procalcitonin 0.75; normal lactate levels Blood, urine culture pending CSF culture no growth to date Continue Rocephin, doxycycline Consider to broaden antibiotics if needed IV diuresis as needed Monitor volume status Nebs as needed Hyponatremia Acute metabolic encephalopathy Low urine sodium Hyponatremia likely multifactorial secondary to GI losses, volume overload due to CHF and increased fluid intake Received IV Lasix Monitor sodium levels Appreciate nephrology input Continue fluid restriction Sodium 118 Diarrhea secondary to illness/home laxatives Negative stool for C. difficile --CT ABD/:Hepatic steatosis. Hepatosplenomegaly. No bowel obstruction. Fluid- filled colon. To rule out Legionella Monitor volume status Hold home laxatives Further evaluation of hepatosplenomegaly as outpatient Orbital Mass -Orbital MRI:2.3 x 1.0 x 1.2 cm left intraorbital extraconal venous varix abuts and displaces the adjacent medial rectus muscle resulting in mild left-sided exophthalmus. Additionally, there is dilation of the left greater than right superior ophthalmic veins with dilated facial veins. Etiology of these findings is nonspecific. Differential considerations would include various causes of elevated venous pressures including carotid cavernous fistula or dural arteriovenous fistula among other etiologies. Ophthalmology consultation is nee ded. -- Denies blurry, double vision Reports headache Ophthalmology consulted HTN elevated likely situational On losartan IV labetalol as needed Daytime somnolence as per records outpatient sleep study contemplated Prediabetes HbA1c of 5.9 last April 2021 DVT Px: Lovenox SQ Code Status Full code Admission and Anticipated Discharge Date Admission Date: September 16, 2021 Subjective Patient is seen and examined at bedside States having cough with minimal expectoration Also reports headache, Orthopnea Denies double/blurry vision Has diarrhea, 2 loose bowel movements nonbloody Denies any chest pain, dizziness, abd pain Discussed with nephrology today Offers no other complaints Review of Systems Review of Systems: All systems reviewed & are unremarkable except as noted in Subjective Physical Exam Physical Exam: Physical Exam: Vitals signs as noted above General Appearance:Obese, no apparent distress Head: normocephalic, Atraumatic Eyes: normal inspection Neck: supple, Trachea midline Respiratory/Chest: Normal breath sounds, basal crackles, No accessory muscle use Cardiovascular: S1, S2, No murmur Abdomen/GI:Soft, Non tender, Bowel sounds present Extremities/Musculoskeletal:normal inspection, Trace edema Neurologic/Psych:AAOX3, grossly no focal neurological deficits Skin: normal color, warm Results & Data Results & Data ([facility]) Vital Signs (Past 12 Hours) Vital Signs Temp Pulse Resp BP Pulse Ox O2 Del Method 09/17/21 18:13 86 18 96 Room Air 09/17/21 17:50 88 18 153/87 H 96 Room Air 09/17/21 17:48 39.3 C H 09/17/21 14:12 38.8 C H 09/17/21 13:23 39.6 C H 09/17/21 10:38 125/48 L 09/17/21 08:07 Room Air 09/17/21 07:46 37.3 C 79 20 181/121 H 98 Room Air 09/17/21 07:35 37.1 C 89 18 181/112 H 98 Room Air Laboratory Results Short CBC 09/16/21 09/17/21 Range/Units 20:10 06:37 WBC 8.29 8.25 (4.8-10.8) K/ul Hgb 13.3 L 12.7 L (14.0-18.0) g/dl Hct 37.3 L 36.9 L (40.1-51.0) % Plt Count 273 260 (130-400) K/uL BMP 09/16/21 09/16/21 09/17/21 20:10 22:49 06:37 Sodium 112 L* 112 L* 117 L* Potassium 4.2 3.6 Chloride 80 L 85 L Carbon Dioxide 22 BUN 13 15 Creatinine 1.06 0.99 Glucose 96 118 H Calcium 9.0 8.7 09/17/21 12:06 Sodium 118 L* Potassium Chloride Carbon Dioxide BUN Creatinine Glucose Calcium Liver Function 09/16/21 09/17/21 Range/Units 20:10 06:37 Total Bilirubin 1.7 H 1.4 H (0.2-1.0) mg/dl Direct Bilirubin 0.7 H (0-0.2) mg/dl AST 63 H 51 H (13-39) U/L ALT 155 H 132 H (7-52) U/L Alkaline Phosphatase 81 84 (34-104) U/L Albumin 3.8 3.6 (3.4-5.0) gm/dl Urine 09/16/21 Range/Units 23:42 Urine Color Dark Yellow Urine Appearance Clear (Clear) Urine pH 6.0 (4.5-7.5) Ur Specific [place] 1.014 (1.000-1.030) Urine Protein 2+ H (Negative) Urine Glucose (UA) Negative (Negative)
[2021-09-17] MEDS ORDERED: cefTRIAXone SODIUM 2,000 MG in DEXTROSE 5% 50 ML IV SCH (20:00)
[2021-09-18] MEDS: MELATONIN 3 MG TAB PO PRN ×2 (01:47→21:26)
[2021-09-18] MEDS: ACETAMINOPHEN 325 MG TAB PO PRN ×3 (03:09→18:39)
--- NOTE | 2021-09-18 06:06 | Electrocardiogram Report ---
Test Reason : Blood Pressure : / mmHG Vent. Rate : 096 BPM Atrial Rate : 096 BPM P-R Int : 146 ms QRS Dur : 098 ms QT Int : 348 ms P-R-T Axes : 065 -05 056 degrees QTc Int : 439 ms Normal sinus rhythm Normal ECG When compared with ECG of 15-JUL-2011 12:55, No significant change was found Confirmed by Feliz Pruett ([id number]) on 09/18/2021 6:05:57 AM Referred By: Michael Arnold Confirmed By:Feliz Pruett
[2021-09-18] MEDS ORDERED: PIPERACILLIN/TAZOBACTAM 4.5 GM in DEXTROSE 5% 100 ML IV ONE (09:00)
[2021-09-18] MEDS: ADVANCED PROBIOTIC 1250 MG CAPSULE PO SCH (09:16)
[2021-09-18] MEDS: DOXYCYCLINE HYCLATE 100 MG CAP PO SCH (09:16)
[2021-09-18] MEDS: allopurinoL 100 MG TAB PO SCH (09:17)
[2021-09-18] MEDS: LOSARTAN POTASSIUM 50 MG TAB PO SCH (09:18)
[2021-09-18] MEDS: ENOXAPARIN INJ 40 MG/0.4 ML SYR SQ SCH (09:18)
[2021-09-18] MEDS: ALBUTEROL 0.083% NEBU SOLN 3 ML VIAL NEB PRN ×3 (09:22→23:40)
[2021-09-18 10:41] LABS: Influenza A virus by PCR Negative (Neg); Influenza B virus by PCR Negative (Neg); RSV by PCR Negative (Neg); SARS CoV2 RNA(COVID-19) InHosp NEGATIVE (Negative)
[2021-09-18] MEDS ORDERED: LOPERAMIDE HCL 2 MG CAP PO PRN (11:15)
[2021-09-18 11:45] LABS: Hematocrit (blood only) 37.3 % (40.1-51.0); Hemoglobin 13.2 g/dl (14.0-18.0); Mean Corpuscular Hgb Conc 35.4 g/dL (32.0-36.0); Mean Platelet Volume 9.7 fL (9.4-12.4); Platelet Count 297 K/uL (130-400); RDW Coefficient of Variation 13.9 % (11.5-14.5); RDW Standard Deviation 41.5 fL (36.4-46.3); Red Blood Count 4.55 M/uL (4.63-6.08); White Blood Count 6.02 K/ul (4.8-10.8)
[2021-09-18 12:07] LABS: Albumin Level 3.5 gm/dl (3.4-5.0); BUN Creatinine Ratio 14.8 (10-20); Bilirubin Direct 0.5 mg/dl (0-0.2); Bilirubin,Total 1.1 mg/dl (0.2-1.0); Calcium 8.8 mg/dl (8.5-10.1); Creatinine Clr Calc Pharmacy 76.6 ml/min; Est GFR (African American) 54.9 ml/min; Est GFR (Non-African American) 47.4 ml/min; Potassium 3.4 mmol/L (3.5-5.1); Total Protein 6.9 gm/dl (6.0-8.3)
[2021-09-18] MEDS: PIPERACILLIN/TAZOBACTAM 4.5 GM in DEXTROSE 5% 100 ML IV SCH ×2 (14:24→21:26)
[2021-09-18] MEDS ORDERED: AZITHROMYCIN 250 MG TAB PO ONE (16:03)
[2021-09-18] MEDS ORDERED: POTASSIUM CHLORIDE CRTAB 20 MEQ TABCR PO ONE (16:16)
[2021-09-18] MEDS ORDERED: AZITHROMYCIN 500 MG in DEXTROSE 5% 250 ML IV ONE (16:30)
--- NOTE | 2021-09-18 16:44 | Nephrology Progress Note ---
Date of Service September 18, 2021 Assessment & Plan Admission and Anticipated Discharge Date Admission Date: September 16, 2021 Subjective S--feels tired unable to sleep last night. Not much urine today. PHYSICAL EXAMINATION: GENERAL: A middle-aged white male who is awake, alert, oriented x3. He is not in any respiratory distress. CHEST: Bilateral basal crackles with diminished breath sounds. CARDIOVASCULAR: S1 and S2 regular. Soft systolic murmur heard. ABDOMEN: Soft, nontender, obese. EXTREMITIES: Show no edema. LABORATORY TESTS: In June 2021, he had a completely normal sodium.Na 119 now. IMAGING DATA: Chest x-ray shows CHF. CT abdomen and pelvis shows multifocal pneumonia. ASSESSMENT AND PLAN: A 56-year-old male with hyponatremia, which appears to be new onset. However, he also has multiple other symptoms including GI and pulmonary symptoms and has been having diarrhea as well as findings of multifocal pneumonia. I have been consulted for hyponatremia. Hyponatremia: This is still under investigation. Urine sodium is very low at less than 10, which can go with either GI loss of sodium or also in significant congestive heart failure. Urine osmolality was inappropriately high in the setting of severe hyponatremia. The patient was drinking massive amounts of liquid and no solid food, which obviously causes problem with serum sodium. Continue to do BMP every 6 hours till we get Na higher than 120 Lasix 40 iv bid. FFR 1200 ml per day A lot of his symptoms at the time of admission could very well have been related with hyponatremia . We will continue to follow the patient. Results & Data ([facility]) Vital Signs (Past 12 Hours) Vital Signs Temp Pulse Pulse Resp BP Pulse Ox Pulse Ox 09/18/21 12:03 81 09/18/21 12:03 09/18/21 11:31 37.5 C 09/18/21 11:01 36.7 C 89 18 154/78 H 92 09/18/21 10:17 39.2 C H 09/18/21 08:00 95 09/18/21 09:23 86 18 95 09/18/21 09:18 36.8 C 89 18 183/104 H 97 O2 Del Method O2 Del Method 09/18/21 12:03 09/18/21 12:03 Room Air 09/18/21 11:31 09/18/21 11:01 Room Air 09/18/21 10:17 09/18/21 08:00 Room Air 09/18/21 09:23 Room Air 09/18/21 09:18 Room Air
[2021-09-18] MEDS ORDERED: FUROSEMIDE 40 MG/4 ML VIAL IV ONE (16:45)
--- NOTE | 2021-09-18 16:52 | Ophthalmology Consultation ---
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 The dilation of other venous structures in the area raises the possibility of increased venous pressure due to a CC fistula or other intracranial vascular anomaly. He is completely asymptomatic and therefore the age of this lesion is unknown. The only way to conclusively evaluate the etiology of the lesion is through angiography. If there is any contraindication to angiography it may be worth getting the opinion of an orbital specialist such as Dr. Semaj Islas with [facility] or Dr. Brizuela at [place] to direct the workup and management of this mass. This could be done as an out patient as this lesion is unlikely to cause any adverse events in the short term. History of Present Illness Reason for Consultation: Evaluation of left orbital mass Attending Physician: Mata Raman MD History of Present Illness The patient was admitted to the hospital for work up of shortness of breath and metal status changes. CT Imaging of the head revealed an incidental finding of a left orbital mass. 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 Mild proptosis on the left side is also noted. The patient denies any ocular symptoms. Specifically, he denies double vision, blurry vision, a red eye, or eye pain. Patient denies any prior ocular disease history but states his last eye exam was probably a few years ago. Allergies Allergy/AdvReac Type Severity Reaction Status Date / Time No Known Allergies Allergy Verified 09/16/21 22:27 Home Medications Medication Instructions Recorded Confirmed Type albuterol sulfate 90 mcg/actuation 2 puff inhalation Q4 PRN Shortness 09/16/21 09/16/21 History aerosol inhaler Of Breath Or Wheezing allopurinol 100 mg tablet 100 mg PO DAILY 09/16/21 09/16/21 History amoxicillin 500 mg capsule 500 mg PO TID 09/16/21 09/16/21 History losartan 50 mg tablet 50 mg PO QAM 09/16/21 09/16/21 History metformin 500 mg tablet 500 mg PO QAM 09/16/21 09/16/21 History prednisone 20 mg tablet 40 mg PO DAILY 09/16/21 09/16/21 History Patient History Social History Smoking Status: Never smoker Hx Substance Use: No Preferred Language: Croatian Communication Ability: Effective Locksmith Required: No Beliefs That Will Affect Care: None Current Living Situation: Family Feels Safe at Home: Yes Safety Concerns: Feels Safe At This Time Assistive Devices: None Physical Exam Eyes: Vision was 20/30 OU measured on a near card with correction. Confrontation visual enriquez, motility, and pupils were normal OU. The pen light exam was unremarkable with no evidence of conjunctival vessel engorgement or tortuosity. The lids, conjunctiva, cornea, anterior chamber, iris, and lens were unremarkable. Fundus exam with out dilation showed normal optic nerves, macula, and retinal vessels. There was mild proptosis on the left side. Intracular pressure could not be checked at the bedside but was roughly symmetrical by palpation. Results & Data ([facility]) Vital Signs (Past 12 Hours) Vital Signs Temp Pulse Pulse Resp BP Pulse Ox Pulse Ox 09/18/21 16:48 36.8 C 84 20 145/88 H 94 09/18/21 12:03 81 09/18/21 12:03 09/18/21 11:31 37.5 C 09/18/21 11:01 36.7 C 89 18 154/78 H 92 09/18/21 10:17 39.2 C H 09/18/21 08:00 95 09/18/21 09:23 86 18 95 09/18/21 09:18 36.8 C 89 18 183/104 H 97 O2 Del Method O2 Del Method 09/18/21 16:48 09/18/21 12:03 09/18/21 12:03 Room Air 09/18/21 11:31 09/18/21 11:01 Room Air 09/18/21 10:17 09/18/21 08:00 Room Air 09/18/21 09:23 Room Air 09/18/21 09:18 Room Air
--- NOTE | 2021-09-18 17:33 | Hospitalist Progress Note ---
Date of Service September 18, 2021 Assessment & Plan (1) Increasing shortness of breath: Plan: Multifactorial : Multifocal pneumonia, fluid overload likely secondary to increased fluid intake and acute on chronic diastolic heart failure Suspected sepsis secondary to multifocal pneumonia due to Legionella --CXR:Cardiomegaly with pulmonary vascular congestion. Right perihilar and bibasilar opacities are noted. Findings may represent a superimposed infectious or inflammatory pneumonitis versus asymmetric pulmonary edema with atelectasis. Follow-up imaging to document resolution recommended. Trace pleural effusions. --ECHO: Mild concentric LVH. Left ventricle wall motion is normal. EF 55 to 60%. Aortic valve sclerosis moderate, without significant aortic valvular stenosis. Trace mitral regurgitation. Grade 1 diastolic dysfunction. Procalcitonin 0.75; normal lactate levels Urine for Legionella positive Other serological work-up pending Blood, urine culture no growth to date CSF culture no growth to date Continue Rocephin, doxycycline>>> changed to azithromycin, Zosyn Monitor volume status Nebs as needed Saturating well on room air Hyponatremia Acute metabolic encephalopathy Low urine sodium Hyponatremia likely multifactorial secondary to GI losses, volume overload due to CHF and increased fluid intake IV Lasix as per Nephrology Monitor sodium levels Appreciate nephrology input Continue fluid restriction Sodium 119 today Acute Kidney Injury Cr 1.6 today Hold losartan today Avoid nephrotoxic agents as able Monitor renal function Hypokalemia Replace electrolytes as needed Diarrhea secondary to Legionella/home laxatives Negative stool for C. difficile --CT ABD/:Hepatic steatosis. Hepatosplenomegaly. No bowel obstruction. Fluid- filled colon. 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 Additionally, there is dilation of the left greater than right superior ophthalmic veins with dilated facial veins. Etiology of these findings is nonspecific. Differential considerations would include various causes of elevated venous pressures including carotid cavernous fistula or dural arteriovenous fistula among other etiologies. Ophthalmology consultation is needed. -- Denies blurry, double vision Reports headache Appreciate Ophthalmology Input May need angiography as outpatient Needs evaluation by orbital specialist upon discharge HTN elevated likely situational losartan--hold due to [place] IV labetalol as needed Daytime somnolence as per records outpatient sleep study contemplated Prediabetes HbA1c of 5.9 last April 2021 DVT Px: Lovenox SQ Code Status Full code Admission and Anticipated Discharge Date Admission Date: September 16, 2021 Subjective Patient is seen and examined at bedside States having poor sleep overnight Patient reports cough and ongoing diarrhea Also reports headache Denies any chest pain, dyspnea, dizziness, abd pain Sodium levels 119 today Review of Systems Review of Systems: All systems reviewed & are unremarkable except as noted in Subjective Physical Exam Physical Exam: Physical Exam: Vitals signs as noted above General Appearance:Obese, no apparent distress Head: normocephalic, Atraumatic Eyes: normal inspection Neck: supple, Trachea midline Respiratory/Chest: Normal breath sounds, basal crackles, No accessory muscle use Cardiovascular: S1, S2, No murmur Abdomen/GI:Soft, Non tender, Bowel sounds present Extremities/Musculoskeletal:normal inspection, Trace edema Neurologic/Psych:AAOX3, grossly no focal neurological deficits Skin: normal color, warm Results & Data Results & Data ([facility]) Vital Signs (Past 12 Hours) Vital Signs Temp Pulse Pulse Resp BP Pulse Ox Pulse Ox 09/18/21 16:48 36.8 C 84 20 145/88 H 94 09/18/21 16:00 94 09/18/21 12:03 81 09/18/21 12:03 09/18/21 11:31 37.5 C 09/18/21 11:01 36.7 C 89 18 154/78 H 92 09/18/21 10:17 39.2 C H 09/18/21 08:00 95 09/18/21 09:23 86 18 95 09/18/21 09:18 36.8 C 89 18 183/104 H 97 O2 Del Method O2 Del Method 09/18/21 16:48 09/18/21 16:00 Room Air 09/18/21 12:03 09/18/21 12:03 Room Air 09/18/21 11:31 09/18/21 11:01 Room Air 09/18/21 10:17 09/18/21 08:00 Room Air 09/18/21 09:23 Room Air 09/18/21 09:18 Room Air Laboratory Results Short CBC 09/18/21 Range/Units 10:35 WBC 6.02 (4.8-10.8) K/ul Hgb 13.2 L (14.0-18.0) g/dl Hct 37.3 L (40.1-51.0) % Plt Count 297 (130-400) K/uL BMP 09/17/21 09/17/21 09/18/21 19:21 22:48 10:35 Sodium TNP 118 L* 119 L* Potassium 3.4 L Chloride 84 L Carbon Dioxide 21 BUN 24 H Creatinine 1.62 H D Glucose 97 Calcium 8.8 09/18/21 15:36 Sodium 119 L* Potassium Chloride Carbon Dioxide BUN Creatinine Glucose Calcium Liver Function 09/18/21 Range/Units 10:35 Total Bilirubin 1.1 H (0.2-1.0) mg/dl Direct Bilirubin 0.5 H (0-0.2) mg/dl AST 57 H (13-39) U/L ALT 110 H (7-52) U/L Alkaline Phosphatase 90 (34-104) U/L Albumin 3.5 (3.4-5.0) gm/dl
[2021-09-19] MEDS: PIPERACILLIN/TAZOBACTAM 4.5 GM in DEXTROSE 5% 100 ML IV SCH ×3 (04:57→23:16)
[2021-09-19 06:52] LABS: Hematocrit (blood only) 36.1 % (40.1-51.0); Hemoglobin 12.7 g/dl (14.0-18.0); Mean Corpuscular Hemoglobin 28.6 pg (25.0-34.0); Mean Corpuscular Hgb Conc 35.2 g/dL (32.0-36.0); Mean Corpuscular Volume 81.3 fL (80.0-100.0); Mean Platelet Volume 9.7 fL (9.4-12.4); Platelet Count 329 K/uL (130-400); RDW Coefficient of Variation 13.7 % (11.5-14.5); RDW Standard Deviation 40.5 fL (36.4-46.3); Red Blood Count 4.44 M/uL (4.63-6.08); White Blood Count 4.71 K/ul (4.8-10.8)
[2021-09-19 07:11] LABS: BUN Creatinine Ratio 15.4 (10-20); Calcium 8.6 mg/dl (8.5-10.1); Creatinine Clr Calc Pharmacy 76.4 ml/min; Est GFR (African American) 52.2 ml/min; Potassium 3.1 mmol/L (3.5-5.1)
[2021-09-19] MEDS ORDERED: POTASSIUM CHLORIDE CRTAB 20 MEQ TABCR PO ONE ×2 (07:44→15:45)
[2021-09-19] MEDS: ADVANCED PROBIOTIC 1250 MG CAPSULE PO SCH (08:31)
[2021-09-19] MEDS: ENOXAPARIN INJ 40 MG/0.4 ML SYR SQ SCH (08:32)
[2021-09-19] MEDS: allopurinoL 100 MG TAB PO SCH (08:32)
[2021-09-19] MEDS ORDERED: AZITHROMYCIN 250 MG TAB PO SCH (09:00)
[2021-09-19] MEDS: AZITHROMYCIN 250 MG in DEXTROSE 5% 250 ML IV SCH (09:18)
--- NOTE | 2021-09-19 10:52 | Nephrology Progress Note ---
Date of Service September 19, 2021 Assessment & Plan Admission and Anticipated Discharge Date Admission Date: September 16, 2021 Subjective Subjective S--feels tired unable to sleep last night. But overall feels getting better. PHYSICAL EXAMINATION: GENERAL: A middle-aged white male who is awake, alert, oriented x3. He is not in any respiratory distress. CHEST: Bilateral basal crackles with diminished breath sounds. CARDIOVASCULAR: S1 and S2 regular. Soft systolic murmur heard. ABDOMEN: Soft, nontender, obese. EXTREMITIES: Show no edema. LABORATORY TESTS: In June 2021, he had a completely normal sodium.Na 122 now. IMAGING DATA: Chest x-ray shows CHF. CT abdomen and pelvis shows multifocal pneumonia. ASSESSMENT AND PLAN: A 56-year-old male with hyponatremia, which appears to be new onset. However, he also has multiple other symptoms including GI and pulmonary symptoms and has been having diarrhea as well as findings of multifocal pneumonia from Legionella. I have been consulted for hyponatremia. Hyponatremia: This is still under investigation.Urine legionella Ag +ve now. Urine sodium is very low at less than 10, which can go with either GI loss of sodium or also in significant congestive heart failure. Urine osmolality was inappropriately high in the setting of severe hyponatremia. The patient was drinking massive amounts of liquid and no solid food, which obviously causes problem with serum sodium. BMP every 12 hours now Lasix 40 iv bid. raise FFR 1500 ml per day A lot of his symptoms at the time of admission could very well have been related with hyponatremia . Creat rising so will also give some NS at 75/hr with iv lasix. Results & Data ([facility]) Vital Signs (Past 12 Hours) Vital Signs Temp Pulse Pulse Resp BP BP Pulse Ox 09/19/21 07:36 37.2 C 77 19 130/78 95 09/19/21 03:37 37.8 C H 84 18 168/105 H 150/89 H 93 09/18/21 23:40 77 96 09/18/21 23:16 75 09/18/21 22:57 37.8 C H 80 18 137/71 95 O2 Del Method 09/19/21 07:36 Room Air 09/19/21 03:37 Room Air 09/18/21 23:40 Room Air 09/18/21 23:16 09/18/21 22:57 Room Air
[2021-09-19] MEDS: FAMOTIDINE 10 MG TABLET PO SCH ×2 (11:25→20:40)
[2021-09-19] MEDS: SODIUM CHLORIDE 0.9% 1000ML 1,000 ML IV SCH ×2 (11:26→23:51)
[2021-09-19 15:08] LABS: BUN Creatinine Ratio 15.7 (10-20); Calcium 8.5 mg/dl (8.5-10.1); Creatinine Clr Calc Pharmacy 77.8 ml/min; Est GFR (African American) 53.4 ml/min; Potassium 3.4 mmol/L (3.5-5.1)
--- NOTE | 2021-09-19 15:35 | Hospitalist Progress Note ---
Date of Service September 19, 2021 Assessment & Plan (1) Increasing shortness of breath: Plan: Multifactorial : Multifocal pneumonia, fluid overload likely secondary to increased fluid intake and acute on chronic diastolic heart failure Suspected sepsis secondary to multifocal pneumonia due to Legionella --CXR:Cardiomegaly with pulmonary vascular congestion. Right perihilar and bibasilar opacities are noted. Findings may represent a superimposed infectious or inflammatory pneumonitis versus asymmetric pulmonary edema with atelectasis. Follow-up imaging to document resolution recommended. Trace pleural effusions. --ECHO: Mild concentric LVH. Left ventricle wall motion is normal. EF 55 to 60%. Aortic valve sclerosis moderate, without significant aortic valvular stenosis. Trace mitral regurgitation. Grade 1 diastolic dysfunction. Procalcitonin 0.75; normal lactate levels Urine for Legionella positive Other serological work-up pending Blood, urine culture no growth to date CSF culture no growth to date Continue Rocephin, doxycycline>>> changed to azithromycin, Zosyn Monitor volume status Nebs as needed Saturating well on room air Continue Current medications Hyponatremia Acute metabolic encephalopathy Low urine sodium Hyponatremia likely multifactorial Legionella, secondary to GI losses, volume overload due to CHF and increased fluid intake IV Lasix as per Nephrology Monitor sodium levels Appreciate nephrology input Continue fluid restriction Sodium 121 today Continue IV Lasix, IV Fluids as recommended by Nephrology Acute Kidney Injury Cr 1.6 today Hold losartan today Avoid nephrotoxic agents as able Monitor renal function Hypokalemia Replace electrolytes as needed Diarrhea secondary to Legionella/home laxatives Negative stool for C. difficile --CT ABD/:Hepatic steatosis. Hepatosplenomegaly. No bowel obstruction. Fluid- filled colon. 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 Additionally, there is dilation of the left greater than right superior ophthalmic veins with dilated facial veins. Etiology of these findings is nonspecific. Differential considerations would include various causes of elevated venous pressures including carotid cavernous fistula or dural arteriovenous fistula among other etiologies. Ophthalmology consultation is needed. -- Denies blurry, double vision Reports headache Appreciate Ophthalmology Input May need angiography as outpatient Needs evaluation by orbital specialist upon discharge HTN elevated likely situational losartan--hold due to [place] IV labetalol as needed Daytime somnolence as per records outpatient sleep study contemplated Prediabetes HbA1c of 5.9 last April 2021 DVT Px: Lovenox SQ Code Status Full code Admission and Anticipated Discharge Date Admission Date: September 16, 2021 Subjective Patient is seen and examined at bedside Diarrhea is improving Less Cough today Slept better yesterday Denies any chest pain, dyspnea, dizziness, abd pain Sodium levels 121 today Discussed with Nephrology today Review of Systems Review of Systems: All systems reviewed & are unremarkable except as noted in Subjective Physical Exam Physical Exam: Physical Exam: Vitals signs as noted above General Appearance:Obese, no apparent distress Head: normocephalic, Atraumatic Eyes: normal inspection Neck: supple, Trachea midline Respiratory/Chest: Normal breath sounds, minimal crackles, No accessory muscle use Cardiovascular: S1, S2, No murmur Abdomen/GI:Soft, Non tender, Bowel sounds present Extremities/Musculoskeletal:normal inspection, Trace edema Neurologic/Psych:AAOX3, grossly no focal neurological deficits Skin: normal color, warm Results & Data Results & Data ([facility]) Vital Signs (Past 12 Hours) Vital Signs Temp Pulse Pulse Resp BP BP Pulse Ox 09/19/21 12:27 70 09/19/21 12:27 09/19/21 12:15 36.7 C 77 18 130/80 95 09/19/21 08:00 09/19/21 07:36 37.2 C 77 19 130/78 95 09/19/21 03:37 37.8 C H 84 18 168/105 H 150/89 H 93 Pulse Ox O2 Del Method O2 Del Method 09/19/21 12:27 09/19/21 12:27 Room Air 09/19/21 12:15 Room Air 09/19/21 08:00 94 Room Air 09/19/21 07:36 Room Air 09/19/21 03:37 Room Air Laboratory Results Short CBC 09/19/21 Range/Units 05:50 WBC 4.71 L (4.8-10.8) K/ul Hgb 12.7 L (14.0-18.0) g/dl Hct 36.1 L (40.1-51.0) % Plt Count 329 (130-400) K/uL BMP 08/01/2809/18/21 09/19/21 15:36 22:27 05:50 Sodium 119 L* 120 L 121 L Potassium 3.1 L Chloride 86 L Carbon Dioxide 22 BUN 26 H Creatinine 1.69 H Glucose 98 Calcium 8.6 09/19/21 14:22 Sodium 121 L Potassium 3.4 L Chloride 86 L Carbon Dioxide 24 BUN 26 H Creatinine 1.66 H Glucose 96 Calcium 8.5
[2021-09-19] MEDS: FUROSEMIDE 40 MG/4 ML VIAL IV SCH (16:00)
[2021-09-19] MEDS: ALBUTEROL 0.083% NEBU SOLN 3 ML VIAL NEB PRN (16:26)
[2021-09-19] MEDS: POTASSIUM CHLORIDE CRTAB 20 MEQ TABCR PO SCH (20:39)
[2021-09-19] MEDS: MELATONIN 3 MG TAB PO PRN (20:41)
[2021-09-19] MEDS ORDERED: POTASSIUM CHLORIDE 10 MEQ TABCR PO SCH (21:00)
[2021-09-19 21:18] LABS: BUN Creatinine Ratio 15.2 (10-20); Calcium 8.8 mg/dl (8.5-10.1); Creatinine Clr Calc Pharmacy 78.8 ml/min; Est GFR (African American) 54.1 ml/min; Est GFR (Non-African American) 46.7 ml/min; Potassium 3.5 mmol/L (3.5-5.1)
[2021-09-20] MEDS: PIPERACILLIN/TAZOBACTAM 4.5 GM in DEXTROSE 5% 100 ML IV SCH ×3 (05:30→22:52)
[2021-09-20 06:38] LABS: BUN Creatinine Ratio 15.9 (10-20); Calcium 8.5 mg/dl (8.5-10.1); Creatinine Clr Calc Pharmacy 89.3 ml/min; Est GFR (African American) 62.8 ml/min; Est GFR (Non-African American) 54.2 ml/min; Magnesium 2.3 mg/dl (1.7-2.4); Potassium 3.5 mmol/L (3.5-5.1)
[2021-09-20] MEDS: ENOXAPARIN INJ 40 MG/0.4 ML SYR SQ SCH (08:52)
[2021-09-20] MEDS: ADVANCED PROBIOTIC 1250 MG CAPSULE PO SCH (08:53)
[2021-09-20] MEDS: FUROSEMIDE 40 MG/4 ML VIAL IV SCH ×2 (08:53→17:48)
[2021-09-20] MEDS: FAMOTIDINE 10 MG TABLET PO SCH ×2 (08:53→21:09)
[2021-09-20] MEDS: POTASSIUM CHLORIDE CRTAB 20 MEQ TABCR PO SCH ×2 (08:54→21:08)
[2021-09-20] MEDS: allopurinoL 100 MG TAB PO SCH (08:55)
[2021-09-20] MEDS: AZITHROMYCIN 250 MG in DEXTROSE 5% 250 ML IV SCH (10:00)
[2021-09-20] MEDS: SODIUM CHLORIDE 0.9% 1000ML 1,000 ML IV SCH (12:10)
--- NOTE | 2021-09-20 12:19 | Nephrology Progress Note ---
Date of Service September 20, 2021 Assessment & Plan Admission and Anticipated Discharge Date Admission Date: September 16, 2021 Subjective Subjective S--overall feels getting better. Lot of urine yesterday 5500 ml PHYSICAL EXAMINATION: GENERAL: A middle-aged white male who is awake, alert, oriented x3. He is not in any respiratory distress. CHEST: Bilateral basal crackles with diminished breath sounds. CARDIOVASCULAR: S1 and S2 regular. Soft systolic murmur heard. ABDOMEN: Soft, nontender, obese. EXTREMITIES: Show no edema. LABORATORY TESTS: In June 2021, he had a completely normal sodium.Na 127 now. IMAGING DATA: Chest x-ray shows CHF. CT abdomen and pelvis shows multifocal pneumonia. urine legionella + ASSESSMENT AND PLAN: A 56-year-old male with hyponatremia, which appears to be new onset. However, he also has multiple other symptoms including GI and pulmonary symptoms and has been having diarrhea as well as findings of multifocal pneumonia from Legionella. I have been consulted for hyponatremia. Hyponatremia: Urine legionella Ag +ve now. Urine sodium is very low at less than 10, which can go with either GI loss of sodium or also in significant congestive heart failure. Urine osmolality was inappropriately high in the setting of severe hyponatremia. The patient was drinking massive amounts of liquid and no solid food, which obviously causes problem with serum sodium. BMP every 12 hours now Continue Lasix 40 iv bid. raise FFR 1500 ml per day A lot of his symptoms at the time of admission could very well have been related with hyponatremia . Continue NS at 75/hr with iv lasix. with combined lasix and NS bun and creat dropping and na rising so continue same Results & Data ([facility]) Vital Signs (Past 12 Hours) Vital Signs Temp Pulse Pulse Resp BP Pulse Ox O2 Del Method 09/20/21 12:02 37.1 C 79 18 127/81 94 Room Air 09/20/21 11:05 77 09/20/21 11:05 Room Air 09/20/21 08:54 37.5 C 82 20 135/80 90 Room Air 09/20/21 03:45 37.2 C 75 20 121/68 94 Room Air
[2021-09-20] MEDS: DEXTROMETHORPHAN POLYMR COMPLX 30 MG/5 ML UDP PO PRN ×2 (15:31→22:52)
--- NOTE | 2021-09-20 15:42 | Hospitalist Progress Note ---
Date of Service September 20, 2021 Assessment & Plan (1) Increasing shortness of breath: Plan: Multifactorial : Multifocal pneumonia, fluid overload likely secondary to increased fluid intake and acute on chronic diastolic heart failure Suspected sepsis secondary to multifocal pneumonia due to Legionella --CXR:Cardiomegaly with pulmonary vascular congestion. Right perihilar and bibasilar opacities are noted. Findings may represent a superimposed infectious or inflammatory pneumonitis versus asymmetric pulmonary edema with atelectasis. Follow-up imaging to document resolution recommended. Trace pleural effusions. --ECHO: Mild concentric LVH. Left ventricle wall motion is normal. EF 55 to 60%. Aortic valve sclerosis moderate, without significant aortic valvular stenosis. Trace mitral regurgitation. Grade 1 diastolic dysfunction. Procalcitonin 0.75; normal lactate levels Urine for Legionella positive Other serological work-up pending Blood, urine culture no growth to date CSF culture no growth to date Continue Rocephin, doxycycline>>> changed to azithromycin, Zosyn Monitor volume status Nebs as needed Saturating well on room air Clinically improving Hyponatremia Acute metabolic encephalopathy Low urine sodium Hyponatremia likely multifactorial Legionella, secondary to GI losses, volume overload due to CHF and increased fluid intake IV Lasix as per Nephrology Monitor sodium levels Appreciate nephrology input Continue fluid restriction Sodium 127 today Continue IV Lasix, IV Fluids as recommended by Nephrology Closely follow-up sodium levels Acute Kidney Injury Cr 1.4 today Hold losartan today Avoid nephrotoxic agents as able Monitor renal function Cr improving Hypokalemia Replace electrolytes as needed Diarrhea secondary to Legionella/home laxatives Negative stool for C. difficile --CT ABD/:Hepatic steatosis. Hepatosplenomegaly. No bowel obstruction. Fluid- filled colon. 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 Additionally, there is dilation of the left greater than right superior ophthalmic veins with dilated facial veins. Etiology of these findings is nonspecific. Differential considerations would include various causes of elevated venous pressures including carotid cavernous fistula or dural arteriovenous fistula among other etiologies. Ophthalmology consultation is needed. -- Denies blurry, double vision Reports headache Appreciate Ophthalmology Input May need angiography as outpatient Needs evaluation by orbital specialist upon discharge HTN elevated likely situational losartan--hold due to [place] IV labetalol as needed Daytime somnolence as per records outpatient sleep study contemplated Prediabetes HbA1c of 5.9 last April 2021 DVT Px: Lovenox SQ Code Status Full code Admission and Anticipated Discharge Date Admission Date: September 16, 2021 Subjective Patient is seen and examined at bedside Sitting in chair during my encounter States feeling much better today Sodium levels improved to 127 Diarrhea, cough, headache, insomnia much improved Denies any chest pain, dyspnea, dizziness Review of Systems Review of Systems: All systems reviewed & are unremarkable except as noted in Subjective Physical Exam Physical Exam: Physical Exam: Vitals signs as noted above General Appearance:Obese, no apparent distress Head: normocephalic, Atraumatic Eyes: normal inspection Neck: supple, Trachea midline Respiratory/Chest: Normal breath sounds, minimal crackles, No accessory muscle use Cardiovascular: S1, S2, No murmur Abdomen/GI:Soft, Non tender, Bowel sounds present Extremities/Musculoskeletal:normal inspection, Trace edema Neurologic/Psych:AAOX3, grossly no focal neurological deficits Skin: normal color, warm Results & Data Results & Data ([facility]) Vital Signs (Past 12 Hours) Vital Signs Temp Pulse Pulse Resp BP Pulse Ox O2 Del Method 09/20/21 12:02 37.1 C 79 18 127/81 94 Room Air 09/20/21 11:05 77 09/20/21 11:05 Room Air 09/20/21 08:54 37.5 C 82 20 135/80 90 Room Air 09/20/21 03:45 37.2 C 75 20 121/68 94 Room Air Laboratory Results [facility] 09/19/21 09/20/21 20:23 05:39 Sodium 123 L 127 L Potassium 3.5 3.5 Chloride 88 L 93 L Carbon Dioxide 24 24 BUN 25 H 23 Creatinine 1.64 H 1.45 H Glucose 101 H 102 H Calcium 8.8 8.5
[2021-09-20 20:57] LABS: BUN Creatinine Ratio 14.7 (10-20); Est GFR (African American) 57.5 ml/min; Est GFR (Non-African American) 49.6 ml/min; Potassium 3.5 mmol/L (3.5-5.1)
[2021-09-20] MEDS: MELATONIN 3 MG TAB PO PRN (21:08)
[2021-09-21] MEDS: SODIUM CHLORIDE 0.9% 1000ML 1,000 ML IV SCH ×2 (00:33→13:16)
[2021-09-21] MEDS: PIPERACILLIN/TAZOBACTAM 4.5 GM in DEXTROSE 5% 100 ML IV SCH ×3 (05:49→21:26)
[2021-09-21 06:39] LABS: Hematocrit (blood only) 37.3 % (40.1-51.0); Mean Corpuscular Hemoglobin 28.7 pg (25.0-34.0); Mean Corpuscular Hgb Conc 34.9 g/dL (32.0-36.0); Mean Corpuscular Volume 82.3 fL (80.0-100.0); Platelet Count 412 K/uL (130-400); RDW Coefficient of Variation 14.7 % (11.5-14.5); RDW Standard Deviation 44.2 fL (36.4-46.3); Red Blood Count 4.53 M/uL (4.63-6.08); White Blood Count 4.35 K/ul (4.8-10.8)
[2021-09-21 07:13] LABS: BUN Creatinine Ratio 16.8 (10-20); Calcium 8.7 mg/dl (8.5-10.1); Creatinine Clr Calc Pharmacy 93.3 ml/min; Est GFR (African American) 67.3 ml/min; Est GFR (Non-African American) 58.1 ml/min; Potassium 3.6 mmol/L (3.5-5.1)
[2021-09-21] MEDS: ADVANCED PROBIOTIC 1250 MG CAPSULE PO SCH (08:33)
[2021-09-21] MEDS: allopurinoL 100 MG TAB PO SCH (08:33)
[2021-09-21] MEDS: ENOXAPARIN INJ 40 MG/0.4 ML SYR SQ SCH (08:33)
[2021-09-21] MEDS: FAMOTIDINE 10 MG TABLET PO SCH ×2 (08:33→21:29)
[2021-09-21] MEDS: POTASSIUM CHLORIDE CRTAB 20 MEQ TABCR PO SCH ×2 (08:34→18:37)
[2021-09-21] MEDS: FUROSEMIDE 40 MG/4 ML VIAL IV SCH ×2 (08:35→16:15)
[2021-09-21] MEDS ORDERED: POTASSIUM CHLORIDE CRTAB 20 MEQ TABCR PO ONE (08:38)
--- NOTE | 2021-09-21 08:43 | Nephrology Progress Note ---
Date of Service September 21, 2021 Assessment & Plan (1) Hyponatremia: Plan: 56-year-old male with hyponatremia, which appears to be new onset. Also has been having diarrhea as well as multifocal Legionella pneumonia. Hyponatremia, improving at acceptable rate and multifactorial from PNA and low solute diet; doubt role for orbital venous lesion. BMP daily Continue Lasix 40 iv bid and NS at 80 ml/hr cont 1500 ml per day FR cont standing K and gave extra 40 mEq po today as well Admission and Anticipated Discharge Date Admission Date: September 16, 2021 Subjective some confusion today; edema in legs mild/improving; no sob; tolerating po but struggles Review of Systems Review of Systems: All systems reviewed & are unremarkable except as noted in Subjective and Unobtainable due to cognitive status (? limited by mild confusion) Physical Exam Constitutional: well developed, well nourished, + morbidly obese and cooperative; no acute distress Eyes: EOM intact bilaterally ENMT: Ears: no external ear abnormality Nose: no external nose abnormality Neck: no nuchal rigidity Respiratory: normal respiratory effort Auscultation: + diminished lung sounds and + crackles (bibasilar) Cardiovascular: Rate/Rhythm: regular rate and regular rhythm Extremities: + edema (1++dependent) Gastrointestinal (Abdomen): Inspection/Auscultation: normal bowel sounds Percussion/Palpation: abdomen soft; abdomen nontender Musculoskeletal: Extremities: strength 5/5 throughout Skin: no rashes, warm and dry Neurologic: santoyo, fluent speech, no tremor Psychiatric: Orientation: alert, oriented to person and oriented to place Insight: + limited insight Results & Data ([facility]) Vital Signs (Past 12 Hours) Vital Signs Temp Pulse Pulse Pulse Resp BP Pulse Ox 09/21/21 07:29 36.7 C 78 16 142/90 H 92 09/21/21 00:00 77 09/21/21 03:19 36.9 C 82 18 138/80 93 09/20/21 23:25 37.4 C 84 18 135/85 97 O2 Del Method 09/21/21 07:29 Room Air 09/21/21 00:00 09/21/21 03:19 Room Air 09/20/21 23:25 Laboratory Results 09/21/21 06:04 09/21/21 06:04
[2021-09-21] MEDS: AZITHROMYCIN 250 MG TAB PO SCH (09:10)
[2021-09-21] MEDS: DEXTROMETHORPHAN POLYMR COMPLX 30 MG/5 ML UDP PO PRN (14:47)
--- NOTE | 2021-09-21 16:26 | Hospitalist Progress Note ---
Date of Service September 21, 2021 Assessment & Plan (1) Increasing shortness of breath: Plan: Multifactorial : Multifocal pneumonia, fluid overload likely secondary to increased fluid intake and acute on chronic diastolic heart failure Suspected sepsis secondary to multifocal pneumonia due to Legionella --CXR:Cardiomegaly with pulmonary vascular congestion. Right perihilar and bibasilar opacities are noted. Findings may represent a superimposed infectious or inflammatory pneumonitis versus asymmetric pulmonary edema with atelectasis. Follow-up imaging to document resolution recommended. Trace pleural effusions. --ECHO: Mild concentric LVH. Left ventricle wall motion is normal. EF 55 to 60%. Aortic valve sclerosis moderate, without significant aortic valvular stenosis. Trace mitral regurgitation. Grade 1 diastolic dysfunction. Procalcitonin 0.75; normal lactate levels Urine for Legionella positive Other serological work-up pending Blood, urine culture no growth to date CSF culture no growth to date Continue Rocephin, doxycycline>>> changed to azithromycin, Zosyn Monitor volume status Nebs as needed Saturating well on room air We will titrate down antibiotics tomorrow Hyponatremia Acute metabolic encephalopathy Low urine sodium Hyponatremia likely multifactorial Legionella, secondary to GI losses, volume overload due to CHF and increased fluid intake IV Lasix as per Nephrology Monitor sodium levels Appreciate nephrology input Continue fluid restriction Sodium 132 today Continue IV Lasix, IV Fluids as recommended by Nephrology Sodium level slowly improving Acute Kidney Injury Cr 1.37 today Hold losartan today Avoid nephrotoxic agents as able Monitor renal function Creatinine levels normalized Hypokalemia Replace electrolytes as needed Diarrhea secondary to Legionella/home laxatives Negative stool for C. difficile --CT ABD/:Hepatic steatosis. Hepatosplenomegaly. No bowel obstruction. Fluid- filled colon. 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 Additionally, there is dilation of the left greater than right superior ophthalmic veins with dilated facial veins. Etiology of these findings is nonspecific. Differential considerations would include various causes of elevated venous pressures including carotid cavernous fistula or dural arteriovenous fistula among other etiologies. Ophthalmology consultation is needed. -- Denies blurry, double vision Reports headache Appreciate Ophthalmology Input May need angiography as outpatient Needs evaluation by orbital specialist upon discharge HTN elevated likely situational losartan--hold due to [place] IV labetalol as needed Daytime somnolence as per records outpatient sleep study contemplated Prediabetes HbA1c of 5.9 last April 2021 DVT Px: Lovenox SQ Code Status Full code Admission and Anticipated Discharge Date Admission Date: September 16, 2021 Subjective Patient is seen and examined at bedside No new complaints Diarrhea resolved Minimal headache today Cough much improved Sodium levels improved to 132 Denies any chest pain, dyspnea, dizziness Review of Systems Review of Systems: All systems reviewed & are unremarkable except as noted in Subjective Physical Exam Physical Exam: Physical Exam: Vitals signs as noted above General Appearance:Obese, no apparent distress Head: normocephalic, Atraumatic Eyes: normal inspection Neck: supple, Trachea midline Respiratory/Chest: Normal breath sounds, CTA, No accessory muscle use Cardiovascular: S1, S2, No murmur Abdomen/GI:Soft, Non tender, Bowel sounds present Extremities/Musculoskeletal:normal inspection, + LE edema Neurologic/Psych:AAOX3, grossly no focal neurological deficits Skin: normal color, warm Results & Data Results & Data ([facility]) Vital Signs (Past 12 Hours) Vital Signs Temp Pulse Pulse Resp BP Pulse Ox O2 Del Method 09/21/21 15:18 36.6 C 20 140/89 94 Room Air 09/21/21 15:01 84 09/21/21 12:15 37.2 C 82 19 113/73 92 Room Air 09/21/21 10:26 70 09/21/21 10:26 Room Air 09/21/21 07:29 36.7 C 78 16 142/90 H 92 Room Air Laboratory Results Short CBC 09/21/21 Range/Units 06:04 WBC 4.35 L (4.8-10.8) K/ul Hgb 13.0 L (14.0-18.0) g/dl Hct 37.3 L (40.1-51.0) % Plt Count 412 H (130-400) K/uL BMP 09/20/21 09/21/21 20:19 06:04 Sodium 129 L 132 L Potassium 3.5 3.6 Chloride 92 L 95 L Carbon Dioxide 25 25 BUN 23 23 Creatinine 1.56 H 1.37 Glucose 85 98 Calcium 9.0 8.7
[2021-09-22] MEDS: SODIUM CHLORIDE 0.9% 1000ML 1,000 ML IV SCH ×2 (03:02→05:56)
[2021-09-22] MEDS: PIPERACILLIN/TAZOBACTAM 4.5 GM in DEXTROSE 5% 100 ML IV SCH ×2 (05:48→12:52)
[2021-09-22] MEDS: ADVANCED PROBIOTIC 1250 MG CAPSULE PO SCH (07:27)
[2021-09-22] MEDS: POTASSIUM CHLORIDE CRTAB 20 MEQ TABCR PO SCH (07:27)
[2021-09-22] MEDS: FUROSEMIDE 40 MG/4 ML VIAL IV SCH (07:28)
[2021-09-22] MEDS: allopurinoL 100 MG TAB PO SCH (07:28)
[2021-09-22] MEDS: FAMOTIDINE 10 MG TABLET PO SCH (07:28)
[2021-09-22] MEDS: AZITHROMYCIN 250 MG TAB PO SCH (07:28)
[2021-09-22 07:35] LABS: BUN Creatinine Ratio 16.6 (10-20); Creatinine Clr Calc Pharmacy 87.6 ml/min; Est GFR (African American) 62.8 ml/min; Est GFR (Non-African American) 54.2 ml/min; Potassium 3.9 mmol/L (3.5-5.1)
[2021-09-22] MEDS: ENOXAPARIN INJ 40 MG/0.4 ML SYR SQ SCH (10:08)
--- NOTE | 2021-09-22 12:12 | Nephrology Progress Note ---
Date of Service September 22, 2021 Assessment & Plan (1) Hyponatremia: Plan: 56-year-old male with hyponatremia, which appears to be new onset. Also had prior to admission been having diarrhea as well as multifocal Legionella pneumonia. With admission sodium 112 on 09/17, needs OP f/u Hyponatremia, now resolved (barely) after aggressive care and multifactorial from PNA and low solute diet; doubt role for orbital venous lesion. Reasonable from nephro standpoint to d/c > will stop IVF, lasix NEPHRO d/c RECS -continue 1.8L fluid limit at d/c -recommend lasix 60 mg daily and potassium 20 mEq bid to start -hold losartan at d/c -bmp in one week to be ordered by neph nurse and weekly until neph eval >>needs hospital discharge appt w/ neph MD at CKD clinic nearest his home in 2-3 wks care coordinated w/ Dr Raman Admission and Anticipated Discharge Date Admission Date: September 16, 2021 Subjective no interval events clinically; sNa up to 135 today; pt denies sob, balance concerns, cough, worsening edema; voiding difficulties; n/v Review of Systems Review of Systems: All systems reviewed & are unremarkable except as noted in Subjective Physical Exam Constitutional: well developed (up in chair on RA), well nourished, + morbidly obese and cooperative; no acute distress Eyes: EOM intact bilaterally ENMT: Ears: no external ear abnormality Nose: no external nose abnormality Neck: no nuchal rigidity Respiratory: normal respiratory effort Auscultation: + diminished lung sounds and + crackles (bibasilar minimal fine/ fewer than yesterday) Cardiovascular: Rate/Rhythm: regular rate and regular rhythm Extremities: + edema (trace dependent) Gastrointestinal (Abdomen): Inspection/Auscultation: normal bowel sounds Percussion/Palpation: abdomen soft; abdomen nontender Musculoskeletal: Extremities: strength 5/5 throughout Skin: no rashes, warm and dry Neurologic: santoyo, fluent speech, no trempor Psychiatric: Orientation: alert and oriented x 3 Results & Data ([facility]) Vital Signs (Past 12 Hours) Vital Signs Temp Pulse Pulse Resp BP Pulse Ox O2 Del Method 09/22/21 10:40 77 09/22/21 10:40 Room Air 09/22/21 07:00 37.1 C 91 H 15 121/84 93 Room Air 09/22/21 02:57 36.5 C 84 17 137/78 95 Room Air Laboratory Results 09/21/21 06:04 09/22/21 06:43
--- NOTE | 2021-09-22 13:49 | Hospitalist Progress Note ---
Date of Service September 22, 2021 Assessment & Plan (1) Increasing shortness of breath: Plan: Multifactorial : Multifocal pneumonia, fluid overload likely secondary to increased fluid intake and acute on chronic diastolic heart failure Suspected sepsis secondary to multifocal pneumonia due to Legionella --CXR:Cardiomegaly with pulmonary vascular congestion. Right perihilar and bibasilar opacities are noted. Findings may represent a superimposed infectious or inflammatory pneumonitis versus asymmetric pulmonary edema with atelectasis. Follow-up imaging to document resolution recommended. Trace pleural effusions. --ECHO: Mild concentric LVH. Left ventricle wall motion is normal. EF 55 to 60%. Aortic valve sclerosis moderate, without significant aortic valvular stenosis. Trace mitral regurgitation. Grade 1 diastolic dysfunction. Procalcitonin 0.75; normal lactate levels Urine for Legionella positive Other serological work-up pending Blood, urine culture no growth to date CSF culture no growth Continue Rocephin, doxycycline>>> changed to azithromycin, Zosyn Monitor volume status Nebs as needed Saturating well on room air Clinically improved Hyponatremia Acute metabolic encephalopathy Low urine sodium Hyponatremia likely multifactorial Legionella, secondary to GI losses, volume overload due to CHF and increased fluid intake IV Lasix as per Nephrology Monitor sodium levels Appreciate nephrology input Continue fluid restriction Sodium 135 today Continue IV Lasix, IV Fluids as recommended by Nephrology Sodium levels improved Change IV lasix to PO Lasix 60mg daily + Potassium 20 mEq BID Plan to hold Losartan on discharge Needs BMP in 1 week Needs follow up with Nephrology in 2-3 weeks Acute Kidney Injury Cr 1.45 today Hold losartan today Avoid nephrotoxic agents as able Monitor renal function Creatinine levels normalized Hypokalemia Replace electrolytes as needed Diarrhea secondary to Legionella/home laxatives Negative stool for C. difficile --CT ABD/:Hepatic steatosis. Hepatosplenomegaly. No bowel obstruction. Fluid- filled colon. 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 Additionally, there is dilation of the left greater than right superior ophthalmic veins with dilated facial veins. Etiology of these findings is nonspecific. Differential considerations would include various causes of elevated venous pressures including carotid cavernous fistula or dural arteriovenous fistula among other etiologies. Ophthalmology consultation is needed. -- Denies blurry, double vision Reports headache Appreciate Ophthalmology Input May need angiography as outpatient Needs evaluation by orbital specialist upon discharge HTN elevated likely situational losartan--held due to [place] IV labetalol as needed Daytime somnolence as per records outpatient sleep study contemplated Prediabetes HbA1c of 5.9 last April 2021 DVT Px: Lovenox SQ Code Status Full code Admission and Anticipated Discharge Date Admission Date: September 16, 2021 Subjective Patient is seen and examined at bedside Doing well today No new complaints Only minimal cough Afebrile Sodium levels improved to 135 Denies any chest pain, dyspnea, dizziness Review of Systems Review of Systems: All systems reviewed & are unremarkable except as noted in Subjective Physical Exam Physical Exam: Physical Exam: Vitals signs as noted above General Appearance:Obese, no apparent distress Head: normocephalic, Atraumatic Eyes: normal inspection Neck: supple, Trachea midline Respiratory/Chest: Normal breath sounds, CTA, No accessory muscle use Cardiovascular: S1, S2, No murmur Abdomen/GI:Soft, Non tender, Bowel sounds present Extremities/Musculoskeletal:normal inspection, + LE edema Neurologic/Psych:AAOX3, grossly no focal neurological deficits Skin: normal color, warm Results & Data Results & Data ([facility]) Vital Signs (Past 12 Hours) Vital Signs Temp Pulse Pulse Resp BP Pulse Ox O2 Del Method 09/22/21 10:40 77 09/22/21 10:40 Room Air 09/22/21 07:00 37.1 C 91 H 15 121/84 93 Room Air 09/22/21 02:57 36.5 C 84 17 137/78 95 Room Air Laboratory Results [facility] 09/22/21 06:43 Sodium 135 L Potassium 3.9 Chloride 99 Carbon Dioxide 22 BUN 24 H Creatinine 1.45 H Glucose 98 Calcium 9.0
--- NOTE | 2021-09-22 14:27 | Discharge Summary ---
Date of Service September 22, 2021 Admission HPI Per Admitting Provider History obtained from patient, family, and records. Medical history significant for chronic diastolic dysfunction (EF 60 to 64%, TTE 2021), mild aortic stenosis, hypertension, hyperlipidemia, daytime somnolence as per records, prediabetes. 10 days ago, patient noted dry cough, congestion, headache, sore throat, fever symptoms, watery diarrhea without abdominal pain symptoms. No recent COVID-19 contacts. Patient completed COVID-19 vaccination. No recent antibiotic Rx preceding illness. 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 Patient seen at PCP's office. Prednisone later amoxicillin course prescribed for possible acute bronchitis. Some improvement in cough symptoms. Patient noted to be short of breath by family. No chest pain. Poor appetite. Patient drinking a lot of water to avoid dehydration following 's advice. Patient thinks he may have overdone it by drinking as much as 6 L of water daily the last few days. Patient denies fluid retention. Patient noted to be disoriented at home by family. Patient brought to the ER for evaluation. Vancomycin, ceftriaxone, azithromycin and Decadron administered at the ER. Patient mentation much better as per family. 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 Admission Exam Per Admitting Provider Physical Exam Physical Exam: GENERAL: Comfortable, obese, minimal respiratory distress SKIN: Normal color, warm HEENT: Alopecia, [place] palpebral conjunctivae, no ptosis, dry buccal mucosa NECK : Supple, short neck, no tenderness CHEST : Decreased breath sounds, no tenderness HEART : RRR, systolic murmur ABDOMEN: Some distention, nontender EXTREMITIES : Minimal LE swelling, no LE tenderness, no other conspicuous deformities noted NEUROLOGIC : Coherent, no facial asymmetry, no other gross focality Principal Diagnosis Multifocal Legionella pneumonia Acute on chronic diastolic heart failure Hyponatremia Acute metabolic encephalopathy Acute Kidney Injury Orbital Mass 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 Discharge Data Allergies Allergy/AdvReac Type Severity Reaction Status Date / Time No Known Allergies Allergy Verified 09/16/21 22:27 Consultations 09/16/21 22:03 ED Decision to Admit Stat 09/17/21 00:18 Consult Nephrology Routine 09/18/21 07:00 Consult Ophthalmology Routine Ordered Studies 08/10/22 20:03 CT head/brain wo con Urgent 09/16/21 21:14 CT abd pelvis wo con Urgent 09/17/21 08:25 MR orbit wo/w con Routine Hospital Course (1) Increasing shortness of breath: Multifactorial : Multifocal pneumonia, fluid overload likely secondary to increased fluid intake and acute on chronic diastolic heart failure Suspected sepsis secondary to multifocal pneumonia due to Legionella --CXR:Cardiomegaly with pulmonary vascular congestion. Right perihilar and bibasilar opacities are noted. Findings may represent a superimposed infectious or inflammatory pneumonitis versus asymmetric pulmonary edema with atelectasis. Follow-up imaging to document resolution recommended. Trace pleural effusions. --ECHO: Mild concentric LVH. Left ventricle wall motion is normal. EF 55 to 60%. Aortic valve sclerosis moderate, without significant aortic valvular sten osis. Trace mitral regurgitation. Grade 1 diastolic dysfunction. Procalcitonin 0.75; normal lactate levels Urine for Legionella positive Other serological work-up pending Blood, urine culture no growth to date CSF culture no growth Continue Rocephin, doxycycline>>> changed to azithromycin, Zosyn Monitor volume status Nebs as needed Saturating well on room air Clinically improved Hyponatremia Acute metabolic encephalopathy Low urine sodium Hyponatremia likely multifactorial Legionella, secondary to GI losses, volume overload due to CHF and increased fluid intake IV Lasix as per Nephrology Monitor sodium levels Appreciate nephrology input Continue fluid restriction Sodium 135 today Continue IV Lasix, IV Fluids as recommended by Nephrology Sodium levels improved Change IV lasix to PO Lasix 60mg daily + Potassium 20 mEq BID Plan to hold Losartan on discharge Needs BMP in 1 week Needs follow up with Nephrology in 2-3 weeks Acute Kidney Injury Cr 1.45 today Hold losartan today Avoid nephrotoxic agents as able Monitor renal function Creatinine levels normalized Hypokalemia Replace electrolytes as needed Diarrhea secondary to Legionella/home laxatives Negative stool for C. difficile --CT ABD/:Hepatic steatosis. Hepatosplenomegaly. No bowel obstruction. Fluid- filled colon. 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 Additionally, there is dilation of the left greater than right superior ophthalmic veins with dilated facial veins. Etiology of these findings is nonspecific. Differential considerations would include various causes of elevated venous pressures including carotid cavernous fistula or dural arteriovenous fistula among other etiologies. Ophthalmology consultation is needed. -- Denies blurry, double vision Reports headache Appreciate Ophthalmology Input May need angiography as outpatient Needs evaluation by orbital specialist upon discharge HTN elevated likely situational losartan--held due to [place] IV labetalol as needed Daytime somnolence as per records outpatient sleep study contemplated Prediabetes HbA1c of 5.9 last April 2021 DVT Px: Lovenox SQ Code Status Full code Total Time Total Time Spent Total Time Spent (In Minutes): 50 minutes Discharge Plan Discharge Items Patient Disposition: Home - Self-Care Reason For Visit: HYPONATREMIA, CHF Discharge Diagnosis: Multifocal Legionella pneumonia Acute on chronic diastolic heart failure Hyponatremia Acute metabolic encephalopathy Acute Kidney Injury Orbital Mass 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 Activity: Per Instructions section Exercise/Sports: Wait until after follow-up appointment Non-emergency contact: Primary Care Provider, Specialist, Tool Shaper Setup Operator and Intensivist Call non-emergency contact if: you have any medication questions, your symptoms worsen, your pain is concerning for you and you have a fever Follow-up/Referrals: Russ Carnes DO [Tool Shaper Setup Operator] - (Date & Time 10/28/2021 10:30 AM Provider Russ Carnes DO Department Cardiology[facility] ) Michael Arnold MD [Primary Care Provider] - (Date & Time 09/28/2021 11:00 AM Provider Michael Arnold MD Department General Internal Medicine [facility] ) Merline Junior DO [Physician] - (Date & Time 09/28/2021 2:20 PM Provider Merline Junior DO Department Sleep Disorders [facility] ) Diet: Heart Healthy Fluids: 1800ml (7 cups) Addtl Attending Provider Instructions: -- Follow-up with your primary care physician Dr. Arnold on 09/28/2021 11:00 AM --Follow-up with your Intensivist in 09/28/2021 2:20 PM2 weeks (Please call for appointment) -- Follow up with your can tester on 10/28/2021 10:30 AM --Follow up with Sleep medicine on --Follow up with Regional Transfer Liaison Dr. Semaj Islas with [facility] or Dr. Brizuela at [place] as recommended for further evaluation of your Orbital Mass --- Your serological work-up is pending at the time of discharge. Follow-up with your physician for results. --Complete antibiotic course (Augmentin, azithromycin) for 4 more days as prescribed. 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 Please call if you have any questions or problems. You can reach a [facility] hospitalist on duty at [facility] 24 hours a day by calling [phone] Call your Primary Care doctor if any of the following symptoms or problems start or get worse: * Shortness of breath or difficulty breathing * Wake up at night short of breath * Chest pain * Cough * Swelling of your hands, feet, or legs * More fatigued or tired with your normal activity * Palpitations - sudden fast heart beats WEIGHT * Weigh yourself every morning after using the bathroom. * Use the same scale. * Wear the same amount of clothing. * Write your weight down on a chart. * Call your Primary Care doctor if you gain more than 2-3 pounds in 1-2 days. MEDICATIONS * Use this discharge instruction sheet for medication instructions. * Take your medications at the time your doctor ordered. * Do not skip a dose of your medicines. * If you miss a dose of medicine, take it as soon as possible, but DO NOT DOUBLE A DOSE. * Read your medicine information when you get home. * Know all of the side effects of your medicine. If in doubt, ask your pharmacist * Call your Primary Care doctor's office if you have any side effects. * Be sure all of your doctors know what medicine and herbs you take (including cold, flu, and herbal medicine). Take the following with you to your follow-up doctor appointments: * Weight Chart * Medication List * List of questions Do not drink excessive alcohol, beer or wine. Pending Studies at Discharge: Yes Studies:: Serological work-up for Anaplasma, Babesia, Ehrlichia, Rickettsia Stand-Alone Forms: My [facility], Smoking Cessation Medications and DC Order Prescriptions: New azithromycin 500 mg tablet 500 mg PO DAILY Qty: 4 0RF amoxicillin-pot clavulanate 875-125 mg tablet 1 tab PO BID Qty: 8 0RF furosemide [Lasix] 40 mg tablet 60 mg PO QAM 14 Days Qty: 21 0RF potassium chloride 20 mEq tablet extended release 20 meq PO BID 14 Days Qty: 28 0RF Continued metformin 500 mg tablet 500 mg PO QAM allopurinol 100 mg tablet 100 mg PO DAILY albuterol sulfate 90 mcg/actuation HFA aerosol inhaler 2 puff INHALATION Q4 PRN (Reason: Shortness Of Breath Or Wheezing) Discontinued losartan 50 mg tablet 50 mg PO QAM amoxicillin 500 mg capsule 500 mg PO TID Rx Instructions: Take for 7 days , filled 09/16/21 prednisone 20 mg tablet 40 mg PO DAILY Rx Instructions: take for 5 days Discharge Orders: Discharge Order (Routine); Ordered 09/22/21 Ordered By: Mata Raman Admission Data Admit Date/Time: 09/16/21 23:53 Attending Provider: Mata Raman Admit Provider: Carlos Hilliard Primary Care Provider: Michael Arnold Other Providers: Carlos Hilliard ; Justina Stone ; Adolfo Hu ; Harini Russell Japheth E. ; Eva Blood ; Amira Yancey ; Norman Desai
[2021-09-24 08:11] LABS: Ehrlichia chaff DNA Bld Negative (Negative)
== END 2021-09-22 15:19 | disposition home or self-care (01) | DRG 871 ==
LOC: ED 19:51 → EDINP 23:53 → 2E 09-17